=== PATIENT | female | born 1960 | race Caucasian/White ===

== ENCOUNTER → 2024-03-18 05:11 | Outpatient (CLI) | payer MEDICARE, SELFPAY ==
--- NOTE | 2024-03-18 | DI.MAMMO_ITS ---
Exam(s) MAMMO SCREENING EXAM: MAMMO SCREENING CLINICAL HISTORY: Z12.31 Screening TECHNIQUE: Bilateral full field digital CC and MLO mammographic images were obtained with 3D tomosyn thesis and utilizing computer aided detection (CAD). COMPARISON: There are no priors for comparison. When priors become available, an addendum will be i ssued at that time. FINDINGS: Masses/Architectural Distortion: None seen. Microcalcifications: No suspicious pleomorphic-type are seen. Skin Thickening/Nipple Retraction: None. IMPRESSION: 1. No evidence for malignancy is seen at this time. 2. Unless there is more urgent need, screening mammography is recommended, as per [employer] guidelines. BI-RADS Category 1 - Negative Breast Density - Category B - Scattered areas of fibroglandular density Breast density category C or D implies that the patient has dense breast tissue. Dense breast tissue is very common and is not abnormal but dense breast tissue can make it harder to find cancer on a ma mmogram. Also, dense breast tissue may increase their breast cancer risk. This information about the result of the mammogram report was provided to the patient to raise their awareness. Use this report when you speak with the patient about their risks for breast cancer, which includes their family hist ory. At that time, you may recommend for more screening tests (Ultrasound or MRI) as they might be us eful based on their risk. A negative radiographic report should not delay biopsy if a dominant or clinically suspicious mass is present. Up to ten percent of cancers are not identified on mammography. A negative report may reinforce clinical impression. Adenosis and dense breasts may obscure an underlying neoplasm. False positive reports average 6 to 10%. Patient will receive a letter notifying them of these results.
== END ==
PROVIDERS: Visit Provider Student in an Organized Health Care Education/Training Program
DX: Z12.31 Encounter for screening mammogram for malignant neoplasm of breast (principal)
CPT/HCPCS: 77063; 77067

== ENCOUNTER 2024-03-18 10:03 | Outpatient (REF) | payer MEDICARE, SELFPAY ==
[2024-03-18 16:17] LABS: Abs Immature Grans 0.02 10^3/uL (0.0-0.06); Absolute Basophil Count 0.04 10^3/uL (0.0-0.2); Absolute Lymphocyte Count 2.22 10^3/uL (1.2-3.4); Absolute Monocyte Count 0.35 10^3/uL (0.1-0.8); Absolute Neutrophil Count 5.42 10^3/uL (1.2-6.7); Basophils % 0.5 %; Eosinophils % 1.2 %; HCT 41.9 % (36.0-46.0); HGB 13.7 g/dL (11.2-15.7); Immature Grans % 0.2 %; Lymphocytes % 27.2 %; MCHC 32.7 % (32.0-36.0); MCV 89 fL (80-95); MPV 10.7 fL (8.0-11.0); Monocytes % 4.3 %; Neutrophils % 66.6 %; Platelet Count 376 10^3/uL (130-400); RBC 4.72 10^6/uL (3.93-5.22); RDW 13.9 % (11.7-14.6); RDW-SD 45.1 fL; WBC 8.15 10^3/uL (4.4-10.8)
[2024-03-18 16:58] LABS: Calculated LDL 195 mg/dL (<100); Cholesterol 281 mg/dL (<200); HDL Cholesterol 50 mg/dL (40-60); Hemoglobin A1C 5.9 % (<5.7); Triglyceride 181 mg/dL (<150)
== END 2024-03-18 10:04 | disposition home or self-care (01) ==
LOC: NCHCN 10:03
PROVIDERS: PCP Student in an Organized Health Care Education/Training Program; Visit Provider Student in an Organized Health Care Education/Training Program
DX: E78.5 Hyperlipidemia, unspecified (principal); J45.20 Mild intermittent asthma, uncomplicated; R73.09 Other abnormal glucose
CPT/HCPCS: 80061; 83036; 85025

== ENCOUNTER 2024-06-19 16:18 | Emergency (ER) | payer MEDICARE, SELFPAY ==
[2024-06-19 16:23] VITALS: BP 150/81; PULSE 84; RESP 96; TEMP 36.9; O2SAT 96
--- NOTE | 2024-06-19 16:23 | ED.GENADUL_ITS ---
Discharge Plan Disposition Patient Disposition: Home Condition: Good Discharge Details Clinical Impression: Lower abdominal pain, Abnormal finding on CT scan Primary Care Provider: Xavier Viveros ED Provider: Adryan Veloz [place] Meds and New Rx's Prescriptions: Continued albuterol sulfate 90 mcg/actuation HFA aerosol inhaler 2 puff inhalation Q6H PRN buspirone 10 mg tablet 10 mg PO BID duloxetine 60 mg capsule,delayed release(DR/EC) 60 mg PO DAILY epinephrine 0.3 mg/0.3 mL auto-injector 0.3 mg IM ONCE Rx Instructions: as a single dose; may repeat once gabapentin 800 mg tablet 800 mg PO TID levothyroxine 100 mcg capsule 100 mcg PO DAILY tizanidine 4 mg tablet 4 mg PO QHS PRN fluticasone propionate 44 mcg/actuation HFA aerosol inhaler 2 inh inhalation ONCE Rx Instructions: administer with spacer Discharge Instructions Additional Instructions: You were seen in the ED for lower abdominal pain and redness with concern for possible abscess. Your laboratory studies and CT scan were completely unremarkable other than possible finding of tiny dots of free air along the liver dome. Given that your exam and labs are unremarkable and the rest of your CT scan was completely normal we have no real explanation for this finding. Recommend follow-up with primary care with repeat CT scan in 1 to 2 weeks. You should return to the ED at once for any new or worsening pain, fever, vomiting, shortness of breath, other concerns. Referrals: Xavier Viveros [Primary Care Provider] - Discharge Data Discharge Date/Time-TO BE ENTERED AT DEPARTURE: 06/19/24 18:51 HPI General Mode of arrival: ambulatory . Date/Time Provider Initiated Documentation: 06/19/24 16:23 . Limitations to Documentation: no limitations . Information obtained by: patient . HPI Narrative: Patient presents to ED for evaluation of left lower quadrant abdominal pain and redness. Patient reports history of what possibly are cutaneous abscesses that spontaneously have drained in the past. Patient reports a large amount of drainage of fluid from the low abdomen Antonio night. Subsequently began taking cephalexin and applied antibacterial ointment cream to the lower abdomen. Reports that after speaking to primary care was told to come to ED to be sure no residual abscess that she continues to have some pain and redness on the left lower abdomen. She denies any fever or chills. She denies any nausea vomiting, diarrhea. She has had chronic intermittent problems in this area status post C- section years ago. Related Data Home Medications ?Medication ?Instructions ?Recorded ?Confirmed albuterol sulfate 90 mcg/actuation 2 puff inhalation Q6H PRN 05/21/24 06/19/24 aerosol inhaler buspirone 10 mg tablet 10 mg PO BID 05/21/24 06/19/24 duloxetine 60 mg capsule,delayed 60 mg PO DAILY 05/21/24 06/19/24 release epinephrine 0.3 mg/0.3 mL 0.3 mg IM ONCE 05/21/24 06/19/24 injection, auto-injector gabapentin 800 mg tablet 800 mg PO TID 05/21/24 06/19/24 levothyroxine 100 mcg capsule 100 mcg PO DAILY 05/21/24 06/19/24 tizanidine 4 mg tablet 4 mg PO QHS PRN 05/21/24 06/19/24 fluticasone propionate 44 2 inh inhalation ONCE 06/19/24 06/19/24 mcg/actuation HFA aerosol inhaler Allergies Allergy/AdvReac Type Severity Reaction Status Date / Time venom-wasp Allergy Severe Anaphylaxis Verified 06/19/24 16:29 acetaminophen (From Percocet) Allergy Unknown Unknown Verified 06/19/24 16:29 atorvastatin Allergy Unknown Other (See Verified 06/19/24 16:29 Comment) coconut Allergy Unknown Unknown Verified 06/19/24 16:29 fish derived Allergy Unknown Unknown Verified 06/19/24 16:29 guaifenesin Allergy Unknown Unknown Verified 06/19/24 16:29 hydromorphone (From Dilaudid) Allergy Unknown Other (See Verified 06/19/24 16:29 Comment) kiwi Allergy Unknown Unknown Verified 06/19/24 16:29 annalisa Allergy Unknown Unknown Verified 06/19/24 16:29 morphine Allergy Unknown Unknown Verified 06/19/24 16:29 mushroom Allergy Unknown Unknown Verified 06/19/24 16:29 nut - unspecified Allergy Unknown Unknown Verified 06/19/24 16:29 oxycodone Allergy Unknown Unknown Verified 06/19/24 16:29 peach Allergy Unknown Unknown Verified 06/19/24 16:29 pear Allergy Unknown Unknown Verified 06/19/24 16:29 shellfish derived Allergy Unknown Unknown Verified 06/19/24 16:29 Sulfa (Sulfonamide Allergy Unknown Unknown Verified 06/19/24 16:29 Antibiotics) Review of Systems Narrative: Per HPI Exam Narrative Exam Narrative: Const: WDWN female in NAD. VS per triage. HEENT: NC/AT. Normal facial exam. Neck: Supple. Trachea midline. Lungs: Normal respiratory effort. GI: Soft/ND. Mild tenderness with firmness in the LLQ with mild overlying erythema. Neuro: A+O x 3. Normal speech, mentation, gait. Cranial nerves II - XII grossly intact. No gross motor or sensory deficit. Ext: No C/C/E. Medical Decision Making Patient presenting to ED with possible abdominal wall abscess which may have self drained last week. Has mild tenderness and erythema overlying a firm area in the left lower quadrant which feels more like scar tissue than abscess. There is no significant drainage and there is no opening in the skin that I can appreciate at this time. Will place IV and get CBC, BMP as well as abdominal pelvic CT with contrast. Patient's laboratory studies are normal. CT scan discussed directly with Dr. Soriano from radiology. There is no evidence of abdominal wall abscess, fistula, bowel abnormalities. Noted tiny dots of what appeared to be free air at the dome of the liver. Patient has no diffuse abdominal pain, no fever, no white count. She otherwise has a completely normal CT scan. Given that there is no explanation for the finding and the patient is clinically stable we will plan discharge home to follow-up with primary care. Radiology recommending repeat CT in 1 to 2 weeks for recheck. Discussed with patient and at length reasons to return including any type of new or worsening abdominal pain, fever, vomiting, shortness of breath, other concerns. Lab Data Lab results reviewed: Yes I reviewed the patient's lab results. Lab results narrative: see [facility] Quality:SDOH Health Related Social Needs: No Data to Display PFSH All Active Problems (Updated 06/19/24 @ 18:49 by Adryan Veloz MD) Abnormal finding on CT scan (Acute) Lower abdominal pain (Acute) Herpes labialis (Acute) Herpes simplex (Acute) Spinal stenosis of lumbar region (Acute) Medical History (Updated 06/19/24 @ 18:49 by Adryan Veloz MD) Fibromyalgia Asthma Peripheral nerve disease EVA (generalized anxiety disorder) Hypercholesterolemia Hypothyroidism Surgical History History of section Social History Smoking/Tobacco Use Status: Never Smoking risk assessment performed?: Yes Alcohol Intake: never Drug use: Never Housing: house Do you feel safe at home: Yes Do you feel safe in your relationship?: Yes
--- NOTE | 2024-06-19 16:45 | DI.CT_ITS ---
Exam(s) CT ABDOMEN PELVIS W EXAM: CT ABDOMEN PELVIS W CLINICAL HISTORY: LLQ redness/tenderness TECHNIQUE: Imaging Protocol: Axial computed tomography images with coronal and sagittal reformatted images were created and reviewed. CONTRAST MATERIAL: Intravenous: Omnipaque 350 Contrast volume:100 mL Oral: No COMPARISON: No exams were available for comparison FINDINGS: ABDOMEN: Lung Bases: There is a small hiatal hernia. Liver: Normal density. There are few tiny hypodensities in the liver. They are too small for further characterization but likely reflect small cysts. Portal, Superior Mesenteric, and Splenic Veins: Unremarkable. Gallbladder and Biliary Tract: No radiodense calculus or dilation. Pancreas: Normal density, no abnormal calcifications or inflammatory process. Spleen: Normal. Adrenals: No masses seen. Kidneys: Normal size, contour and axis. No radiodense stones or obstructive uropathy. No masses seen. Abdominal Aorta: Abdominal portion non-dilated. Atherosclerotic calcification is present. Bowel: No obstruction or bowel wall thickening. There is a moderate amount of stool in the colon sugg esting constipation. No evidence of appendicitis. Peritoneal Cavity: No ascites, collection or mesenteric inflammatory response. There are few tiny fo ci of air seen in the peritoneum adjacent to the into superior liver (series 9 images 4 through 10.) (sagittal image 37 series 7). Lymph Nodes: Within normal limits. Bones: Within normal limits for the patient's age. Soft Tissues: Unremarkable. PELVIS: Bladder: Symmetric distention, no gross wall thickening. Reproductive Organs: Unremarkable as visualized. Lymph Nodes: Within normal limits. Bones: Within normal limits for the patient's age. IMPRESSION: 1. No evidence of a subcutaneous fluid collection or mass. No subcutaneous air is seen. The abdomin al wall appears intact. 2. There is no evidence of bowel wall thickening or obstruction. 3. Moderate amount of stool in the colon. This may represent constipation. 4. A few tiny foci of what appear to be pneumoperitoneum around the liver. A follow-up CT scan of th e abdomen and pelvis is recommended to reassess the pneumoperitoneum. 5. Findings were discussed with Dr. Veloz at 6:30 p.m. on 06/19/2024. RADIATION DOSE DELIVERED: 494.59mGy.cm Total DLP DATA REPOSITORY: All CT scans at this facility are submitted to the National Radiology Data Registry (NRDR) Dose Index Registry (DIR) with the [employer] (ACR). RADIATION OPTIMIZATION: All CT scans at this facility use at least one of these dose optimization te chniques: automated exposure control; mA and/or kV adjustment per patient size (includes targeted exa ms where dose is matched to clinical indication); or iterative reconstruction.
--- OUTSIDE RECORDS SUMMARY | 2024-06-19 16:46 | XMS_ITS | Data Portability ---
Author Organization [place] - [facility] Address [address] [place] [address] Assessment Encounter Date Assessment Date Assessment LastModified by Organization Details LastModified Time 03/18/2024 03/18/2024 New meds sent to Pharmacy. Referral to Dermatology and Endocrinology, and podiatry. We will do pap at October Appt. which should be her last one if negative. Not available 03/18/2024 09:05:11 Plan of Treatment Reminders Order Date Submit Date Provider Last Modified By Organization Details Last Modified Time Details Appointments Acute 2023 01:33P M Not available Not available Not available Acute 2023 01:00P M Not available Not available Not available Follow Up 2024 10:10A M Not available Not available Not available Lab HbA1c (hemoglob in A1c), blood - 1 SST, 1 Lav [address] [facility] (Registration ), [address] [place] [address] [place], [address], 03/26/2024 14:09:14 lipid panel, serum 2023 024 [facility] (Registration ), [address] [place] [address] [place], [address], 03/26/2024 14:09:14 CBC w/ auto diff 2023 024 JUNIOR [facility] (Registration ), [address] [place] [address] [place], [address], 03/18/2024 16:28:57 Referral dermatolo gist referral - Pt, 63-F, being referred for likely Hidradeni tis Supparati va, and also evaluatio n of a likely sebaceous cyst on her low back that she would like to have removed if possible. SHe has responded to Cephalexi n for the CELESTE symptoms, and she has had these cysts in bilateral lesions. 2023 JUNIOR [facility] ([facility]), [address] [place], [address], 06/04/2024 11:27:28 podiatris t referral - Pt, 63-F, w/refract ory plantar's wart on the plantar aspect of her great toe. She is hoping for definitiv e excisino of this PW. 2023 JUNIOR Not available 05/13/2024 04:18:49 orthopedi c surgeon referral - Pt, 63-F, gives hx. of TKR of left side in year 2013. Pt. states she has had increased pain over recent months to years and states she was informed that she required liner replaceme nt for left knee. Pt. patricia Sibley. 2023 [email or web address] Jose Elias Sibley MD, [address], [address], [place], [address], 06/04/2024 16:15:32 Procedures None recorded. Surgeries None recorded. Imaging MAMMO, screening , bilateral - Pt last mammogram 2021 and due for f/u. No signs/Sx of breast cancer including pain, bumps, lumps, skin changes, dimples, change in nipple orientati on, armpit pain. 2023 [email or web address] [facility], [address], [place], [address], 04/09/2024 12:57:24 Medication Orders EpiPen 2-Leo 0.3 mg/0.3 mL injection , auto-inje ctor 2023 024 [facility], [address] [place] [address], [address], 12/11/2023 13:43:15 cephalexi n 500 mg capsule 2023 [facility], [address] [place] [address], [address], 03/18/2024 12:11:16 mupirocin 2 % topical ointment 2023 [facility], [address] [place] [address], [address], 03/18/2024 12:11:12 gabapenti n 800 mg tablet [address], [address] [place] [address], [address], 03/18/2024 11:42:31 duloxetin e 60 mg capsule,d elayed release [address], [address] [place] [address], [address], 03/18/2024 11:42:31 tizanidin e 4 mg tablet [address] [facility], [address] [place], [address], 03/18/2024 11:42:31 EpiPen 2-Leo 0.3 mg/0.3 mL injection , auto-inje ctor [address], [address] [place] [address], [address], 03/18/2024 11:42:31 famciclov ir 500 mg tablet 2023 024 [facility], [address] [facility], [address], [place], [address], 03/18/2024 12:11:15 levothyro xine 100 mcg tablet 2023 024 [email or web address] [facility], [address], [address], [place], [address], 03/18/2024 11:42:31 Patient TargetsNo targets recorded. Patient InstructionsNo instructions recorded. 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 SHe has responded to Cephalexin for the CELESTE symptoms, and she has had these cysts in bilateral lesions. Referring Physician: Xavier Viveros [facility] Medicine, Encounter Date: 03/18/2024 Orthopedic Surgeon Referral for Pain of left knee joint Pt, 63-F, gives hx. of TKR of left side in year 2013. Pt. states she has had increased pain over recent months to years and states she was informed that she required liner replacement for left knee. Pt. requesting Dr. Sibley. Referring Physician: Xavier Viveros [facility] Medicine, Encounter Date: 03/18/2024 Vocational Rehabilitation Consultant Referral for Pain of toe of left foot Pt, 63-F, w/refractory plantar's wart on the plantar aspect of her great toe. She is hoping for definitive excisino of this PW. Referring Physician: Xavier Viveros [facility] Medicine, Encounter Date: 03/18/2024 Vocational Rehabilitation Consultant Referral for Pain of toe of left foot Referring Physician: Xavier Viveros [facility] Medicine, Encounter Date: 05/15/2024 Endocrinology Referral for H istory of malignant neoplasm of thyroid Pt. 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 She then had recurrence of growth and then went to [facility] [place] they then did radiation ablation. Pt. reports she had recurrence she thinks 2000 and then had another round of iodine ablation which was not effective, then she was referred to another specialist. She has [address] that were were slightly irregular, but they are stable. She is having US surveillance every 3 years. She believes she is due again in 2024. She reports her thyroid has been checked about every 12 months. Pt. requesting surveillance by endocrine specialists for mgmt of thyroid care. Referring Physician: Xavier Viveros, Family Medicine, Encounter Date: 05/23/2024 Results Created Date Observation Date Name Description Value Unit Range Abnormal Flag Note LastModifiedBy Organization Detail LastModifiedTime 03/18/2003/18/2024 COMPL ETE BLOOD COUNT W/DIF F WBC 8.15 10_3/ uL 4.4-10 .8 normal Not Available [address] [place], [address] 03/18/2024 16:28:57 03/18/2003/18/2024 COMPL ETE BLOOD COUNT W/DIF F RBC 4.72 10_6/ uL 3.93-5 .22 normal Not Available [address] [place], [address] 03/18/2024 16:28:57 03/18/20 24 03/18/2024 COMPL ETE BLOOD COUNT W/DIF F HGB 13.7 g/dL 11.2-1 5.7 normal Not Available [address] [place], [address] 03/18/2024 16:28:57 03/18/20 24 03/18/2024 COMPL ETE BLOOD COUNT W/DIF F HCT 41.9 % 36.0-4 6.0 normal Not Available [address] [place], [address] 03/18/2024 16:28:57 03/18/20 24 03/18/2024 COMPL ETE BLOOD COUNT W/DIF F MCV 89 fL 80-95 normal Not Available Sadie wynne [address] [place], [address] 03/18/2024 16:28:57 03/18/20 24 03/18/2024 COMPL ETE BLOOD COUNT W/DIF F MCH 29.0 pg 27.0-3 3.0 normal Not Available [address] [place], [address] 03/18/2024 16:28:57 03/18/20 24 03/18/2024 COMPL ETE BLOOD COUNT W/DIF F MCHC 32.7 % 32.0-3 6.0 normal Not Available [address] [place], [address] 03/18/2024 16:28:57 03/18/20 24 03/18/2024 COMPL ETE BLOOD COUNT W/DIF F RDW 13.9 % 11.7-1 4.6 normal Not Available [address] [place], [address] 03/18/2024 16:28:57 03/18/20 24 03/18/2024 COMPL ETE BLOOD COUNT W/DIF F platelet count 376 10_3/ uL 130-40 0 normal Not Available [address] [place], [address] 03/18/2024 16:28:57 03/18/20 24 03/18/2024 COMPL ETE BLOOD COUNT W/DIF F MPV 10.7 fL 8.0-11 .0 normal Not Available [address] [place], [address] 03/18/2024 16:28:57 03/18/20 24 03/18/2024 COMPL ETE BLOOD COUNT W/DIF F neutrophils % 66.6 % Not Available [address] [place], [address] 03/18/2024 16:28:57 03/18/20 24 03/18/2024 COMPL ETE BLOOD COUNT W/DIF F lymphocytes % 27.2 % Not Available [address] [place], [address] 03/18/2024 16:28:57 03/18/20 24 03/18/2024 COMPL ETE BLOOD COUNT W/DIF F monocytes % 4.3 % Not Available [address] [place], [address] 03/18/2024 16:28:57 03/18/20 24 03/18/2024 COMPL ETE BLOOD COUNT W/DIF F eosinophils % 1.2 % Not Available [address] [place], [address] 03/18/2024 16:28:57 03/18/20 24 03/18/2024 COMPL ETE BLOOD COUNT W/DIF F basophils % 0.5 % Not Available [address] [place], [address] 03/18/2024 16:28:57 03/18/20 24 03/18/2024 COMPL ETE BLOOD COUNT W/DIF F immature grans % 0.2 % Not Available [address] [place], [address] 03/18/2024 16:28:57 03/18/20 24 03/18/2024 COMPL ETE BLOOD COUNT W/DIF F nucleated RBC 0.0 % 0.0-0. 3 normal Not Available [address] [place], [address] 03/18/2024 16:28:57 03/18/20 24 03/18/2024 COMPL ETE BLOOD COUNT W/DIF F absolute neutrophil count 5.42 10_3/ uL 1.2-6. 7 normal Not Available [address] [place], [address] 03/18/2024 16:28:57 03/18/20 24 03/18/2024 COMPL ETE BLOOD COUNT W/DIF F absolute lymphocyte count 2.22 10_3/ uL 1.2-3. 4 normal Not Available [address] [place], [address] 03/18/2024 16:28:57 03/18/20 24 03/18/2024 COMPL ETE BLOOD COUNT W/DIF F absolute monocyte count 0.35 10_3/ uL 0.1-0. 8 normal Not Available [address] [place], [address] 03/18/2024 16:28:57 03/18/20 24 03/18/2024 COMPL ETE BLOOD COUNT W/DIF F absolute eosinophil count 0.10 10_3/ uL 0.0-0. 7 normal Not Available [address] [place], [address] 03/18/2024 16:28:57 03/18/20 24 03/18/2024 COMPL ETE BLOOD COUNT W/DIF F absolute basophil count 0.04 10_3/ uL 0.0-0. 2 normal Not Available [address] [place], [address] 03/18/2024 16:28:57 03/18/20 24 03/18/2024 HEMOG LOBIN A1C hemoglobin A1C 5.9 % <5.7 high Refer ence Range s <5.7 Katie l 5.7-6 .4% Predi abete s 6.5% or great er Diagn ostic for diabe caty (if confi rmed) Refer ences : 1. Ameri can Diabe caty Assoc iatio n. Clas sific ation and Diagn osis of Diabe caty. Diabe caty Care 2019 Oct; 2(Sup pleme nt 1):S1 3-s28 . Not Available [address] [place], [address] 03/18/2024 17:04:13 03/18/20 24 03/18/2024 LIPID 2 cholesterol 281 mg/dL <200 high Not Available [address] [place], [address] 03/18/2024 17:04:14 03/18/20 24 03/18/2024 LIPID 2 triglyceride 181 mg/dL <150 high Not Available [address] [place], [address] 03/18/2024 17:04:14 03/18/20 24 03/18/2024 LIPID 2 HDL cholesterol 50 mg/dL 40-60 Not Available Emmanuel [address] [place], [address] 03/18/2024 17:04:14 03/18/20 24 03/18/2024 LIPID 2 calculated LDL 195 mg/dL <100 high Natio nal Yuliet stero l Educa tion Progr am (NCEP -ATPI II) class ifica tions : Yuliet stero l <200 mg/dL Yenifer able Yuliet stero l 200-2 39 mg/dL Borde rline High Yuliet stero l >or=2 40 mg/dL High HDL <40 mg/dL Low HDL >or=6 0 mg/dL High LDL <100 mg/dL Optim al LDL 100-1 29 mg/dL Near Optim al/Ab ove Optim al LDL 130-1 59 mg/dL Borde rline High LDL 160-1 89 mg/dL High LDL >or=1 90 mg/dL Very High *The above refer ence range is for adult s 18 years or older . Not Available [facility] [address], [place], [address] 03/18/2024 17:04:14 04/01/20 24 04/01/2024 mammo graph y imagi ng repor t Patien t Name: Miller Castrejon Unit #: [id number] Loc: DI Orderi ng Provid er: Sha Viveros Accoun t #: [id number] Status : REG CLI Primar y Care Provid er: Unknow n,Unkn own Date of Exam: 08/01 Sex: F Admiss ion Date: : 1959 Age: 63 Exam(s ) MG MAMMO SCREEN ING EXAM: MG MAMMO SCREEN ING CLINIC AL HISTOR Y: Z12.31 Screen ing TECHNI QUE: Bilate ral full field digita l CC and MLO mammog raphic images were obtain ed with 3D tomosy nthesi s and utiliz ing comput er aided detect ion (CAD). COMPAR TEAGAN: There are no priors for compar teagan. When priors become availa ble, an addend um will be issued at that time. FINDIN GS: Masses /Archi tectur al Distor tion: None seen. Microc alcifi cation s: No suspic ious pleomo rphic- type are seen. Skin Thicke ana cristina/N ipple Retrac tion: None. IMPRES STEFF: 1. No eviden ce for malign geneva is seen at this time. 2. Unless there is more urgent need, screen ing mammog danilo is recomm ended, as per [facility] y guidel deborah. BI-RAD S Catego ry 1 - Negati ve Breast Densit y - Catego ry B - Scatte red areas of fibrog landul ar densit y Breast densit y catego ry C or D implie s that the patien t has dense breast tissue . Dense breast tissue is very common and is not abnorm al but dense breast tissue can make it harder to find cancer on a mammog yana. Also, dense breast tissue may increa se their breast cancer risk. This inform ation about the result of the mammog yana report was provid ed to the patien t to raise their awaren ess. Use this report when you speak with the patien t about their risks for breast cancer , which includ es their family histor y. At that time, you may recomm end for more screen ing tests (Ultra sound or MRI) as they might be useful based on their risk. A negati ve radiog raphic report should not delay biopsy if a domina nt or clinic ally suspic ious mass is presen t. Up to ten percen t of cancer s are not identi fied on mammog danilo. A negati ve report may reinfo rce clinic al impres steff. Adenos is and dense breast s may obscur e an underl cirilo neopla sm. False positi ve report s averag e 6 to 10%. Patien t will receiv e a letter notify ing them of these result s. Ordere d By: Sha Viveros CC: ------ ------ ------ ------ ------ ------ ------ ------ ------ ------ ------ ------ - Dictat ed By: Adryan Soriano M.D. 1155 1155 Transc ribed By: Adryan Soriano 1155 This is privil eged, confid ential inform ation intend ed only for the provid er named. Any use or distri bution by any person other than this provid er is strict ly prohib ited. If you receiv e this report in error, please notify us immedi ately at [phone] and return the origin al report to us at the addres s above. Thank- you. [email or web address] [facility] [address] [place], [address] 05/18/2024 14:34:54 Result Notes None recorded. Problems Name Problem SNOMED Code Status Onset Date Resolution Date Notes Provider Name and Address Organization Details Recorded Time Generalized anxiety disorder 00038913 Active 2023 JEREMIE GOMEZ, [facility] 4 11:51:57 Mild intermitten t asthma 475149708 Active 2023 JEREMIE GOMEZ, [facility] 4 11:52:11 Abscess 866762311 Active 2023 JEREMIE GOMEZ, [facility] 4 11:52:28 Fibromyalgi a 338935239 Active 2023 JEREMIE GOMEZ, [facility] 4 07:42:16 Herpes simplex 26174763 Active 2023 JEREMIE GOMEZ, [facility] 4 07:43:21 Hypercholes terolemia 07748979 Active 2023 JEREMIE GOMEZ, [facility] 4 07:43:42 Spinal stenosis of lumbar region 02644531 Active 2023 JEREMIE GOMEZ, [facility] 4 07:44:07 Peripheral nerve disease 474904432 Active 2023 JEREMIE GOMEZ, [facility] 4 07:44:41 Postoperati ve hypothyroid ism 73758913 Active 2023 JEREMIE GOMEZ, [facility] 4 07:45:39 History of malignant neoplasm of thyroid 551309470 Active 2023 JEREMIE GOMEZ, [facility] 4 07:45:56 Hypothyroid ism 32901896 Active [address], [place], [address], [facility] 4 10:36:40 Wasp sting-induc ed anaphylaxis 826902904 Active [address], [place], [address], [facility] 4 11:08:53 Hidradeniti s suppurativa 69705320 Active [address], [place], [address], [facility] 4 12:44:40 Allergic rhinitis 86657224 Active [address], [place], [address], [facility] 4 08:01:36 Hyperlipide amisha 51801466 Active [address], [place], [address], [facility] 4 08:33:34 Herpes labialis 5293983 Active [address], [place], [address], [facility] 4 08:38:12 Pain of left knee joint 6126142556637 07 Active [address], [place], [address], [facility] 4 11:59:00 Pain of toe of left foot 6629832359415 08 Active [address], [place], [address], [facility] 12:02:26 wound disruption 606856205 Active [address], [place], [address], [facility] 16:04:50 Problem Notes None recorded. Procedures Surgical History Date Name Laterality Status Provider Name and Address Organization Details Recorded Time 06/13/20 24 Suture/Staple removal active [address], [place], [address], [facility] 06/13/2024 14:11:35 04/08/20 19 colonoscopy completed JEREMIE GOMEZ, [facility] 12/05/2023 07:47:38 10/09/19 18 extraction of cataract completed JEREMIE GOMEZ, [facility] 12/05/2023 07:46:37 10/09/19 17 [facility]2023 07:46:22 10/09/19 17 anterior transposition of ulnar nerve completed JEREMIE GOMEZ, [facility] 12/05/2023 07:48:48 10/09/19 13 Total knee arthroplasty completed JEREMIE GOMEZ, [facility] 12/05/2023 07:48:18 10/09/19 10 colonoscopy completed JEREMIE GOMEZ, [facility] 12/05/2023 07:47:28 10/09/19 06 Thyroid Surgery completed JEREMIE GOMEZ, [facility] 12/05/2023 07:48:02 10/09/19 04 Thyroid Surgery completed JEREMIE GOMEZ, [facility] 12/05/2023 07:47:57 10/09/18 90 [facility]2023 07:47:52 10/09/18 88 section [facility] 12/05/2023 07:47:05 10/09/18 85 section [facility] 12/05/2023 07:47:00 Imaging Results Imaging Date Name Status LastModified by Organiz ation Details LastModified Time 04/01/2024 mammography imaging report completed [email or web address] [facility] [address] [place], [address] 05/18/2024 14:34:54 Procedure Notes None recorded. Medical Equipment None Reported. Allergies Allergen ID Allergen Name Allergen Category Reaction Reaction Severity Criticality Documentation Date Start Date Code Code System Note Provider Name and Address Organization Details Recorded Time 69079 Substance with sulfonami de structure and antibacte rial mechanism of action (substanc e) medicatio n Not available Not available Not available 12/08/2023 97782 8003 [facility]ED [facility] 4 09:44:14 07993 Dilaudid medicatio n Not available Not available Not available 12/08/2023 74212 3 RxNorm [facility] 4 09:44:20 91383 morphine medicatio n Not available Not available Not available 12/08/2023 7052 RxNorm JEREMIE GOMEZ, [facility] 4 09:44:33 58831 acetamino phen / oxycodone medicatio n Not available Not available Not available 12/08/2023 17058 3 RxNorm [facility] 4 09:44:41 94173 oxycodone medicatio n Not available Not available Not available 12/08/2023 7804 RxNorm [facility] 4 09:44:49 42907 atorvasta tin medicatio n Not available Not available Not available 12/08/2023 27253 RxPatlillian MIN GARCIAJEREMIE, [facility] 4 09:44:56 57926 guaifenes in medicatio n Not available Not available Not available 12/08/2023 5032 RxPatlillian MIN GARCIAJEREMIE, [facility] 4 09:45:07 93134 shellfish derived food,medi cation Not available Not available Not available 12/08/2023 MIN GARCIAJEREMIE, [facility] 4 09:45:21 02259 fish derived food,medi cation Not available Not available Not available 12/08/2023 MINREUBEN GARCIAJEREMIE, [facility] 4 09:45:29 36319 banana extract food,medi cation Not available Not available Not available 12/08/2023 84586 9 Kofilillian MIN GARCIAJEREMIE, [facility] 4 09:45:36 44957 nut - unspecifi ed food Not available Not available Not available 12/08/2023 MIN GARCIA JEREMIE nicole, [facility] 4 09:45:48 62209 coconut extract food,medi cation Not available Not available Not available 12/08/2023 61941 48 Blanka GARCIA JEREMIE nicole, [facility] 4 09:45:57 85067 annalisa extract food Not available Not available Not available 12/08/2023 63994 32 Blanka GARCIAJEREMIE, [facility] 4 09:46:04 99600 kiwi fruit extract food Not available Not available Not available 12/08/2023 94307 01 Blanka GARCIA JEREMIE nicole, [facility] 4 09:46:12 76987 pear preparati on food Not available Not available Not available 12/08/2023 58917 25 RxNoJEREMIE Jaramillo, [facility] 4 09:46:19 64110 peach food Not available Not available Not available 12/08/2023 JEREMIE GOMEZ, [facility] 4 09:46:27 55013 cultivate d mushroom extract food Not available Not available Not available 12/08/2023 05377 17 RxNorm JEREMIE GOMEZ, [facility] 4 09:46:34 Medications Name Sig Start Date Stop Date Status Note LastModified by Organization Details LastModified Time tizanidine 4 mg tablet Take 1 tablet every day by oral route at bedtime. 2023 active Not Available Not Available Not Avai lable cephalexin 250 mg tablet Take 1 tablet every 6 hours by oral route. 2023 active Not Available Not Available Not Avai lable levothyroxi ne 100 mcg tablet Take 1 tablet every day by oral route. 2023 active Not Available Not Available Not Avai lable famciclovir 500 mg tablet Take 3 tablets at the same time at onset of cold sore 2023 active Not Available Not Available Not Avai lable gabapentin 800 mg tablet Take 1 tablet 3 times a day by oral route. 2023 active Not Available Not Available Not Avai lable cephalexin 500 mg capsule Take 1 capsule every 6 hours by oral route. 2023 active Not Available Not Available Not Avai lable buspirone 10 mg tablet Take 1 tablet twice a day by oral route. active Not Available Not Available No t Available fluticasone propionate 220 mcg/actuati on HFA aerosol inhaler Inhale 1 puff twice a day by inhalatio n route. active Not Available Not Available No t Available pravastatin 20 mg tablet 1 tab by mouth each night before bed 2023 active Not Available Not Available Not Avai lable mupirocin 2 % topical ointment APPLY A SMALL AMOUNT TO THE AFFECTED AREA BY TOPICAL ROUTE 3 TIMES PER DAY 2023 active Not Available Not Available Not Avai lable albuterol 90 mcg/actuati on aerosol inhaler Inhale by inhalatio n route. active Not Available Not Available No t Available fluticasone propionate 50 mcg/actuati on nasal spray,suspe nsion [place] 1 spray every day by intranasa l route. 12/07 completed Not Available Not Available Not Available duloxetine 60 mg capsule,del ayed release Take 1 capsule every day by oral route. 2023 active Not Available Not Available Not Avai lable EpiPen 2-Leo 0.3 mg/0.3 mL injection, auto-inject or Administe r 1 epi-pen injection with onset of anaphylax is reaction. If no improveme nt in symptoms at 5-minute addison, administe r second epipen injection . Go to ER for any anaphylax is episode. 2023 active Not Available Not Available Not Avai lable ascorbic acid (vitamin C) 500 mg capsule Take 1 capsule every day by oral route. active Not Available Not Available No t Available Vitals Date Recorded Body height Body mass index (BMI) Body weight Body temperature Oxygen saturation Oxygen saturation in Arterial blood by Pulse oximetry Heart rate Respiratory rate Systolic blood pressure Diastolic blood pressure Provider Name and Address Organization Details Last Updated DateTime 4 154.94 cm 30.8 kg/m2 48507.2 7 g 98.1 [degF] 99 % 99 % 78 /min 20 /min 122 mm[Hg] 82 mm[Hg] MIN GARCIA MA [facility] 4 09:42:25 Date Recorded Body height Body mass index (BMI) Body weight Body temperature Oxygen saturation Oxygen saturation in Arterial blood by Pulse oximetry Heart rate Systolic blood pressure Diastolic blood pressure Provider Name and Address Organization Details Last Updated DateTime 4 154.94 cm 30.6 kg/m2 92404.6 8 g 97.7 [degF] 100 % 100 % 82 /min 122 mm[Hg] 78 mm[Hg] MIN GARCIA MA [facility] 4 08:02:26 Date Recorded Body height Body mass index (BMI) Body weight Body temperature Oxygen saturation Oxygen saturation in Arterial blood by Pulse oximetry Heart rate Respiratory rate Systolic blood pressure Diastolic blood pressure Provider Name and Address Organization Details Last Updated DateTime 4 154.94 cm 31 kg/m2 71824.1 5 g 98.4 [degF] 97 % 97 % 74 /min 18 /min 144 mm[Hg] 78 mm[Hg] Daisy Becker MA [facility] 15:00:19 Social History Question Answer Notes LastModified by Organizat ion Details LastModified Time Tobacco Smoking Status Never Smoker MIN GARCIA MA null, [facility] 12/05/2023 10:56:38 Would You Say That, In General, Your Health Is Very Good Information not available 12/05/2023 How Often Does Anyone, Including Family, Physically Hurt You? Never Information not available 12/05/2023 How Often Does Anyone, Including Family, Insult Or Talk Down To You? Never Information no t available 12/05/2023 How Often Does Anyone, Including Family, Threaten You With Harm? Never Information not available 12/05/2023 How Often Does Anyone, Including Family, Scream Or Curse At You? Never Information not available 12/05/2023 Within The Past 12 Months, You Worried That Your Food Would Run Out Before You Got Money To Buy More. Sometimes True Information not available 12/05/2023 Within The Past 12 Months, The Food You Bought Just Didn't Last And You Didn't Have Money To Get More. Sometimes True Information not available 12/05/2023 How Hard Is It For You To Pay For The Very Basics Like Food, Housing, Medical Care, And Heating? Would You Say It Is: Very Hard Information not available 12/05/2023 In The Past 12 Months, Has Lack Of Reliable Transportation Kept You From Medical Appointments, Meetings, Work Or From Getting Things Needed For Daily Living? No Information not available 12/05/2023 What Is Your Housing Situation Today? I Have Housing. Information not available 12/05/2023 How Often In The Past Year Have You Used Marijuana (including Smoking, Vaping, Dabbing, Or Edibles)? Never Information not available 12/05/2023 How Often In The Past Year Have You Used Prescription Medications That Were Not Prescribed To You? Never Information n ot available 12/05/2023 How Often In The Past Year Have You Taken Your Own Prescription Medication More Than The Way It Was Prescribed Or For Different Reasons Than Its Intended Purpose? Never Information no t available 12/05/2023 How Often In The Past Year Have You Used Other Drugs (for Example, Heroin, Cocaine, Meth, Salvia, Inhalants)? Never Information not available 12/05/2023 Have You Ever Used IV Drugs? No Information not available 12/05/2023 Date Of Most Recent SBINS 12/05/2023 Information not available 12/05/2023 What Was The Date Of Your Most Recent Tobacco Screening? 06/19/2024 [email or web address] Information not available 06/19/2024 Has Tobacco Cessation Counseling Been Provided? Yes [email or web address] Information not available 06/19/2024 On What Date Was Tobacco Cessation Counseling Provided? 06/19/2024 [email or web address] Information not available 06/19/2024 Do You Or Have You Ever Used Any Other Forms Of Tobacco Or Nicotine? No Information not available 12/05/2023 Sex: Unknown Functional Status None recorded. Mental Status None recorded. Family History Nothing Reported. Medical History No medical history recorded. Gynecological HistoryNo gynecological history recorded. Obstetrics History GPAL:G 0 P 0 0 0 0 Past Encounters Encounter ID Performer Location Encounter Start Date Encounter Closed Date Diagnosis/Indication Diagnosis SNOMED-CT Code Diagnosis ICD10 Code [id number] GISSELL MORAN [facility] [place] [address] 12/08/2023 09:08:26 12/08/2023 11:15:48 Screening mammography 25431406 Z12.31 Herpes simplex 24161708 B00.9 Fibromyalgia 368635897 M 79.7 Hypothyroidism 27861158 E03.9 Wasp sting -induced anaphylaxis 659394805 T63.461A [id number] GISSELL MORAN [facility] [address] [place] [address] 03/18/2024 07:47:00 03/18/2024 09:12:08 Mild intermittent asthma 641057967 J45.20 Allergic rhinitis 727509 04 J30.9 Screening mammography 24 245902 Z12.31 Wasp sting -induced anaphylaxis 160845912 T63.461A Fibromyalgia 020111827 M 79.7 Generalize d anxiety disorder 30010631 F41.1 Hypothyroidism 61584468 E03.9 Hidradenit is suppurativa 99433415 L73.2 Hyperlipidemia 60553853 E78.5 Diabetes m ellitus screening 831570483 Z13.1 Herpes labialis 3072190 B00.1 Pain of le ft knee joint 5435731423 44224 M25.562 Pain of to e of left foot 0815030748 90334 M79.865 [id number] Nora Reese [facility] [address] [place] [address] 06/13/2024 13:32:10 06/13/2024 14:00:51 Removal of suture 73831364 Z48.02 [id number] CIRO CISNEROS PA-C [address],[facility] [address] [place] [address] 06/19/2024 13:35:12 06/19/2024 15:59:04 wound disruption 664595141 O90.0 Health Concerns Section Related Observation LastModified by Organization Detai ls LastModified Time None Recorded Concern Status LastModified by Organization Details LastModified Time None Recorded Advance Directives Directive None Recorded Payers Encounter Date Sequence Insurance Name Policy Number Policy Chanel Covered Member ID Chanel Member ID Guarantor Name 12/08/2023 1 *SELF PAY* Carlos Castrejon 03/18/2024 1 MEDICARE B-PA: [employer] Madina Castrejon [id number] Madina Castrejon 03/18/2024 1 [facility] - MEDICARE ADVANTAGE (MEDICARE REPLACEMENT O) [id number] Madina Castrejon [id number] Madina Castrejon 06/19/2024 1 [facility] (MEDICARE REPLACEMENT HMO) [id number] Madina Castrejon [id number] Madina Castrejon Notes Date Note Type Note Provider Name and Address Organization Details Recorded Time 12/08/2023 text/html HPI Notes: Pt. 63-F, here to establish care. [place] is returning to [place] from [place] after being there since 1998. She has PMH notable for, hypothyroid, fibromyalgia, Herpes Simplex. 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 She then had recurrence of growth and then went to [facility] [place] they then did radiation ablation. Pt. reports she had recurrence she thinks 2000 and then had another round of iodine ablation which was not effective, then she was referred to another specialist. She has [address] that were were slightly irregular, but they are stable. She is having [place] surveillance every 3 years. She believes she is due again in 2024. She reports her thyroid has been checked about every 12 months and she reports. Asthma: She reports good control with Albuterol as needed. Allergic Rhinitis: She will use claritin. and add on a benedryl if severe. She has trialed nasal spray in the event. j Skin Infectin/Folliculit is/Hidradenitis Supparativa? Pt. gives recent history this last fall of repeated recurrence of of very sore inguinal lesion. It was biopsied, but no definitive diagnosis. Cephalexin was very helpful in helpful. Fibromyalgia: Pt. reports she has had this a while. Gabapentin has been effective for a long time. She reports having never broken a controlled substance agreement. Herpes Simples: PT. reports that Valacyclovir was not effective. She reports that famciclovir when necessary. Depression/Anxiety/ PTSD: Taking Duloxetine at 60 mg which she feels is helpful. She also takes Buspar which she takes at night helps her to sleep. Surgical Hx: 0-T-bkmklygb, TKR on Left side, she reports she needs a new liner. Bilateral carpal tunnel, Right side ulnar nerve transposition, R. rotator cuff surgery w/biceps tendon repair. then L-shoulder rotator repair in 2021. 4 subtotal thyroidectomy. She also had toe surgery bilaterally to straighten her toes out. Breast Cancer Screening: Pt. states she is due for mammogram. Last mammogram was 2021. She denies breast lumps, bumps, dimples, skin changes, nipple discharge, or armpit pain. Peripheral Nerve Disease: Pt. reports having profound cold exposure when she was young. She reports she a nerve conduction study before her toe surgery where the abnormality was revealed. She reports left sided sciatica. She reports she had L1-L4 had bone spurs. She has not had any PT. She states she looks forward to walking more this spring. Cholesterol: Pt. had allergy to Lipitor. GISSELL MORAN [address], [place], [address], [place] [facility]. 12/11/2023 13:39:06 03/18/2024 text/html HPI Notes: Pt. 63-F, here for follow up. . [place] is returning to [place] from [place] after being there since 1998. She has PMH notable for, hypothyroid, fibromyalgia, Herpes Simplex. 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 She then had recurrence of growth and then went to [facility] which they then did radiation ablation. Pt. reports she had recurrence she thinks 2000 and then had another round of iodine ablation which was not effective, then she was referred to another specialist. She has [address] that were were slightly irregular, but they are stable. She is having US surveillance every 3 years. She believes she is due again in 2024. She reports her thyroid has been checked about every 12 months and she reports. Asthma: She reports good control with Albuterol as needed. Allergic Rhinitis: She will use claritin. and add on a benedryl if severe. She has trialed nasal spray in the event. Also supplementing with cold/flu remedy occasionally. Skin Infectin/Folliculit is/Hidradenitis Supparativa? Pt. gives recent history this last fall of repeated recurrence of of very sore inguinal lesion. It was biopsied, but no definitive diagnosis. Cephalexin was very helpful in helpful. Cephlex only helpful at 500 mg QID per pt. report. Fibromyalgia: Pt. reports she has had this a while. Gabapentin has been effective for a long time. She reports having never broken a controlled substance agreement. Pap Screening: Pt. reports last pap was 2-years ago or maybe more recently. Record review shows 2019 pap. Herpes Simples 1. : PT. reports that Valacyclovir was not effective. She reports that famciclovir when necessary. Depression/Anxiety/ PTSD: Taking Duloxetine at 60 mg which she feels is helpful. She also takes Buspar which she takes at night helps her to sleep. Surgical Hx: 7-I-bieeieyg, TKR on Left side, she reports she needs a new liner. Bilateral carpal tunnel, Right side ulnar nerve transposition, R. rotator cuff surgery w/biceps tendon repair. then L-shoulder rotator repair in 2021. 4 subtotal thyroidectomy. She also had toe surgery bilaterally to straighten her toes out. Breast Cancer Screening: Pt. was ordered a mammogram last visit on 12/08/2023 by myself. Mammo not done at this time, but pt. informs me it's actually scheduled today. Last mammogram was 2021. She denies breast lumps, bumps, dimples, skin changes, nipple discharge, or armpit pain. Peripheral Nerve Disease: Pt. reports having profound cold exposure when she was young. She reports she a nerve conduction study before her toe surgery where the abnormality was revealed. She reports hx of left sided sciatica. She reports she had L1-L4 had bone spurs. She has not had any PT. She states she looks forward to walking more this spring. Cholesterol: Pt. had allergy to Lipitor. Would like to check cholesterol today. Eating improved diet over last 8-months or so. GISSELL MORAN [address], [place], [address], [facility]. 03/18/2024 13:07:24 06/19/2024 text/html HPI Notes: Miller booker is a 63-year-old female who presents for evaluation of opening of her scar which occurred this past . She states that for the past 14 years she has had intermittent episodes with this where sometimes a will open and drain a bit. She states that several years ago she had some testing done of the fluid and it returned susceptible for cephalexin and mupirocin which her current primary care provider has given to her to keep on hand in the event that she has some opening. This past however it was different than it usually has been. She states there was a large gush of fluid into her hand that she went to go down to bed at night. She describes it as clear but it was not thick nor thin and was not watery. She had pain in this area. She attempted to lift the pannus and used a mirror to look at the area but had some difficulty seeing it. She reports that there was an opening which she describes as about 1 to 2 cm in size and that a thick ropelike thing was sticking out similar to the size of a man's thumb. She question if maybe it was her colon. She pushed it back in and then gently massage the area. The pain improved that night. She has been taking large amounts of cephalexin since. When this first occurred she took 1500 mg of cephalexin that night followed by 1500 mg of cephalexin in the morning and at 1000 mg during the day. She did this for 2 days and then transition to 500 mg morning and evening. She reports that area is much closed now but that there is a indentation where she pushed the previous thing that was sticking out and and that she is still now having some discomfort on the left side. This now has her worried that she may have pushed something and she should not have she reports she did not go to the emergency department initially because she has panic disorder when she is in panic disorder she cannot have rational thinking. She realizes now that maybe she should have gone then. She denies other previous surgeries of the abdomen other than the 2 previous C-sections she has had. She has not had fever since onset of symptoms but does note her temperature is a bit higher today than it is usually for her. She has had no nausea or vomiting. Since being diagnosed prediabetic she has changed her diet in the last almost year and has alternation between diarrhea and constipation at baseline. Does not feel that stool has been different since this episode. She is not having any urinary symptoms. CIRO CISNEROS PA-C [address], [place], [address], [facility]. 06/19/2024 16:06:41 OBGyn Episode No OBEpisode recorded.
--- OUTSIDE RECORDS SUMMARY | 2024-06-19 16:47 | XMS_ITS | Continuity of Care Document ---
Author Organization [place] - [facility] [employer] [facility], [facility] Address [address] [place] [address] Assessment No assessment recorded. Plan of Treatment Reminders Order Date Submit Date Provider Last Modified By Organization Details Last Modified Time Details Appointments Acute 2023 01:33P M Not available Not available Not available Acute 2023 01:00P M Not available Not available Not available Follow Up 2024 10:10A M Not available Not available Not available Lab None recorded . Referral None recorded . Procedures None recorded . Surgeries None recorded . Imaging None recorded . Medication Orders None recorded . Patient TargetsNo targets recorded. Patient InstructionsNo instructions recorded. Reason for Referral Marina Sales And Service Supervisor Referral for H idradenitis suppurativa Pt, 63-F, being referred for likely Hidradenitis Supparativa, and also evaluation of a likely sebaceous cyst on her low back that she would like to have removed if possible. SHe has responded to Cephalexin for the CELESTE symptoms, and she has had these cysts in bilateral lesions. Referring Physician: Xavier Viveros, Family Medicine, Encounter Date: 03/18/2024 Orthopedic Surgeon Referral for Pain of left knee joint Pt, 63-F, gives hx. of TKR of left side in year 2013. Pt. states she has had increased pain over recent months to years and states she was informed that she required liner replacement for left knee. Pt. requesting Dr. Sibley. Referring Physician: Xavier Viveros Family Medicine, Encounter Date: 03/18/2024 Spooling Machine Operator Referral for Pain of toe of left foot Pt, 63-F, w/refractory plantar's wart on the plantar aspect of her great toe. She is hoping for definitive excisino of this PW. Referring Physician: Xavier Viveros [facility], Encounter Date: 03/18/2024 Spooling Machine Operator Referral for Pain of toe of left foot Referring Physician: Xavier Viveros [facility], Encounter Date: 05/15/2024 Endocrinology Referral for H istory of malignant neoplasm of thyroid Pt. 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 She then had recurrence of growth and then went to [facility] which they then did radiation ablation. Pt. [...] mgmt of thyroid care. Referring Physician: Xavier Viveros [facility], Encounter Date: 05/23/2024 Problems Name Problem SNOMED Code Status Onset Date Resolution Date Notes Provider Name and Address Organization Details Recorded Time Generalized anxiety disorder 82755385 Active 2023 JEREMIE GOMEZ, [facility] 4 11:51:57 Mild intermitten t asthma 412610396 Active 2023 JEREMIE GOMEZ, [facility] 4 11:52:11 Abscess 922398704 Active 2023 JEREMIE GOMEZ, [facility] 4 11:52:28 Fibromyalgi a 233989070 Active 2023 JEREMIE GOMEZ, [facility] 4 07:42:16 Herpes simplex 35690030 Active 2023 JEREMIE GOMEZ, [facility] 4 07:43:21 Hypercholes terolemia 47507096 Active 2023 MIN GARCIA MA null, [facility] 4 07:43:42 Spinal stenosis of lumbar region 14810637 Active 2023 MIN GARCIA MA null, [facility] 4 07:44:07 Peripheral nerve disease 573641856 Active 2023 MIN GARCIA MA null, [facility] 4 07:44:41 Postoperati ve hypothyroid ism 87884300 Active 2023 JEREMIE GOMEZ, [facility] 4 07:45:39 History of malignant neoplasm of thyroid 513651319 Active 2023 MIN GARCIA MA null, [facility] 4 07:45:56 Hypothyroid ism 74369651 Active 2023 GISSELL MORAN [address], [place], [address], [facility] 4 10:36:40 Wasp sting-induc ed anaphylaxis 668264332 Active [address], [place], [address], [facility] 4 11:08:53 Hidradeniti s suppurativa 20580142 Active [address], [place], [address], [facility] 4 12:44:40 Allergic rhinitis 91585576 Active [address], [place], [address], [facility] 4 08:01:36 Hyperlipide amisha 27814495 Active 2023 GISSELL MORAN [address], [place], [address], [facility] 4 08:33:34 Herpes labialis 4024065 Active [address], [place], [address], [facility] 4 08:38:12 Pain of left knee joint 3522850520344 07 Active [address], [place], [address], [facility] 4 11:59:00 Pain of toe of left foot 2247647864517 08 Active [address], [place], [address], [facility] 4 12:02:26 wound disruption 503411034 Active [address], [place], [address], [facility] 16:04:50 Problem Notes None recorded. Procedures Surgical History Date Name Laterality Status Provider Name and Address Organization Details Recorded Time 06/13/20 24 Suture/Staple removal active [address], [place], [address], [facility] 06/13/2024 14:11:35 04/08/20 19 colonoscopy completed JEREMIE GOMEZ, [facility] 12/05/2023 07:47:38 10/09/19 18 extraction of cataract completed JEREMIE GOMEZ, [facility] 12/05/2023 07:46:37 10/09/19 17 [facility]/2023 07:46:22 10/09/19 17 anterior transposition of ulnar nerve [facility] 12/05/2023 07:48:48 10/09/19 13 [facility] 12/05/2023 07:48:18 10/09/19 10 [facility] 12/05/2023 07:47:28 10/09/19 06 [facility] 12/05/2023 07:48:02 10/09/19 04 [facility] 12/05/2023 07:47:57 10/09/18 90 Thy[facility] 12/05/2023 07:47:52 10/09/18 88 section [facility] 12/05/2023 07:47:05 10/09/18 85 section [facility] 12/05/2023 07:47:00 Imaging Results None recorded. Procedure Notes None recorded. Medical Equipment None Reported. Allergies Allergen ID Allergen Name Allergen Category Reaction Reaction Severity Criticality Documentation Date Start Date Code Code System Note Provider Name and Address Organization Details Recorded Time 55578 Substance with sulfonami de structure and antibacte rial mechanism of action (substanc e) medicatio n Not available Not available Not available 12/08/2023 93609 8003 [facility]ED [facility] 4 09:44:14 59809 Dilaudid medicatio n Not available Not available Not available 12/08/2023 54644 3 RxNorm [facility] 4 09:44:20 03585 morphine medicatio n Not available Not available Not available 12/08/2023 7052 RxNoJEREMIE Jaramillo, [facility] 4 09:44:33 79878 acetamino phen / oxycodone medicatio n Not available Not available Not available 12/08/2023 32310 3 RxWin MIN HILLJEREMIE TRAN, [facility] 4 09:44:41 54068 oxycodone medicatio n Not available Not available Not available 12/08/2023 7804 RxNoJEREMIE Jaramillo, [facility] 4 09:44:49 34870 atorvasta tin medicatio n Not available Not available Not available 12/08/2023 61786 Blanka HILLCHELSEAJEREMIE, [facility] 4 09:44:56 69982 guaifenes in medicatio n Not available Not available Not available 12/08/2023 5032 RxPatlillian HILLCHELSEAJEREMIE, [facility] 4 09:45:07 79749 shellfish derived food,medi cation Not available Not available Not available 12/08/2023 MIN GARCIA JEREMIE nicole, [facility] 4 09:45:21 13450 fish derived food,medi cation Not available Not available Not available 12/08/2023 MIN GARCIA JEREMIE nicole, [facility] 4 09:45:29 28479 banana extract food,medi cation Not available Not available Not available 12/08/2023 31310 9 RxWin PALOMINOVIE LIZCHELSEAJEREMIE, [facility] 4 09:45:36 14650 nut - unspecifi ed food Not available Not available Not available 12/08/2023 MIN GARCIAJEREMIE, [facility] 4 09:45:48 97834 coconut extract food,medi cation Not available Not available Not available 12/08/2023 49027 48 RxJEREMIE Ford, [facility] 4 09:45:57 28030 annalisa extract food Not available Not available Not available 12/08/2023 82629 32 JEREMIE Malcolm, [facility] 4 09:46:04 61648 kiwi fruit extract food Not available Not available Not available 12/08/2023 76333 01 JEREMIE Malcolm, [facility] 4 09:46:12 66935 pear preparati on food Not available Not available Not available 12/08/2023 60664 25 JEREMIE Malcolm, [facility] 4 09:46:19 93557 peach food Not available Not available Not available 12/08/2023 JEREMIE GOMEZ, [facility] 4 09:46:27 90716 cultivate d mushroom extract food Not available Not available Not available 12/08/2023 96804 17 Kofilillian MIN GARCIA JEREMIE nicole, [facility] 4 09:46:34 Medications Name Sig Start [...] propionate 50 mcg/actuati on nasal spray,suspe nsion [place] 1 spray every day by intranasa l [...] Updated DateTime 4 154.94 cm 31 kg/m2 14717.1 5 g 98.4 [degF] 97 % 97 % 74 /min 18 /min 144 mm[Hg] 78 mm[Hg] Daisy Becker MA [facility]. 4 15:00:19 Social History Question Answer Notes LastModified by Organizat ion Details LastModified Time Tobacco Smoking Status Never Smoker MIN GARCIA MA null, [place] [facility]. 12/05/2023 10:56:38 Would You Say That, In [...] Of Your Most Recent Tobacco Screening? 06/19/2024 [email or web address] Information not available 06/19/2024 Has Tobacco Cessation Counseling Been Provided? Yes Information not available 06/19/2024 On What Date Was Tobacco Cessation Counseling Provided? 06/19/2024 [email or web address] Information not available 06/19/2024 Do You Or [...] Diagnosis/Indication Diagnosis SNOMED-CT Code Diagnosis ICD10 Code 8841678 Nora Reese [facility] [place] [address] [place] [address] 06/13/2024 13:32:10 06/13/2024 14:00:51 Removal of suture 97917876 Z48.02 [id number] CIRO CISNEROS PA-C [address],[facility] [address] [place] [address] 06/19/2024 13:35:12 06/19/2024 15:59:04 wound disruption 081393540 O90.0 Health Concerns Section Related Observation LastModified by Organization Detai ls LastModified Time None Recorded Concern Status LastModified by Organization Details LastModified Time None Recorded Payers Encounter Date Sequence Insurance Name Policy Number Policy Chanel Covered Member ID Chanel Member ID Guarantor Name 06/19/2024 1 [facility] (MEDICARE REPLACEMENT HMO) [id number] Madina Castrejon [id number] Madina Castrejon Notes Date Note Type Note Provider Name and Address Organization Details Recorded Time 06/19/2024 text/html HPI Notes: Miller booker is [...] She is not having any urinary symptoms. [address], [place], [address], [facility]. 06/19/2024 16:06:41 OBGyn Episode No OBEpisode recorded.
[2024-06-19 17:20] LABS: Abs Immature Grans 0.02 10^3/uL (0.0-0.06); Absolute Basophil Count 0.03 10^3/uL (0.0-0.2); Absolute Eosinophil Count 0.19 10^3/uL (0.0-0.7); Absolute Lymphocyte Count 2.22 10^3/uL (1.2-3.4); Absolute Monocyte Count 0.42 10^3/uL (0.1-0.8); Absolute Neutrophil Count 4.53 10^3/uL (1.2-6.7); Basophils % 0.4 %; Eosinophils % 2.6 %; HCT 41.1 % (36.0-46.0); HGB 13.4 g/dL (11.2-15.7); Immature Grans % 0.3 %; MCH 29.8 pg (27.0-33.0); MCHC 32.6 % (32.0-36.0); MCV 91 fL (80-95); MPV 9.5 fL (8.0-11.0); Monocytes % 5.7 %; Platelet Count 280 10^3/uL (130-400); RDW 14.3 % (11.7-14.6); RDW-SD 48.3 fL; WBC 7.41 10^3/uL (4.4-10.8)
[2024-06-19 17:26] LABS: Anion Gap 7.1 mmol/L (3-11); BUN 13 mg/dL (7-18); CO2 28.9 mmol/L (21.0-32.0); CREATININE 0.7 mg/dL (0.55-1.02); Calcium 8.4 mg/dL (8.5-10.1); Chloride 104 mmol/L (98-107); Estimated GFR 96.52 (mL/min/1.73m2); Glucose 94 mg/dL (74-106); Potassium 4.2 mmol/L (3.5-5.1); Sodium 140 mmol/L (136-145)
[2024-06-19] MEDS: Lactated Ringers 1,000 ML 1000 ML IV (17:26)
[2024-06-19] MEDS: Normal Saline - Diluent 50 ML VIAL IJ (17:50)
[2024-06-19] MEDS: Omnipaque 350 MG/ML 100 ML BTL IJ (17:54)
[2024-06-19 18:49] VITALS: RESP 18
[2024-06-19 18:57] VITALS: BP 154/81; PULSE 79; RESP 16; O2SAT 97
== END 2024-06-19 18:51 | disposition home or self-care (01) ==
PROVIDERS: Emergency Provider Emergency Medicine; PCP Student in an Organized Health Care Education/Training Program
DX: R10.30 Lower abdominal pain, unspecified (principal)
CPT/HCPCS: 80048; 96360; 99285; 74177; 85025; 99283; J3490

== ENCOUNTER 2024-07-12 15:52 | Outpatient (REF) | payer MEDICARE, SELFPAY ==
--- OUTSIDE RECORDS SUMMARY | 2024-07-12 15:53 | XMS_ITS | Encounter Summary ---
Author Organization [facility] Address [facility] [address] [place] [address] Care Team Providers Care Rn Family Name Role Phone Xavier Viveros Primary Care Provider + Encounter Details Date Type Department Care Team (Latest Contact Info) Description 06/04/2024 Travel Social History Tobacco Use Types Packs/Day Years Used Date Smoking Tobacco: Never Assessed Sex and Gender Information Value Date Recorded Sex Assigned at Not on file Gender Identity Not on file Sexual Orientation Not on file documented as of this encounter Plan of Treatment Upcoming Encounters Date Type Department Care Team (Late st Contact Info) Description 08/27/2024 8:30 AM EST Office [place] [address] Taras Thompson MD [facility] [place] [address] documented as of this encounter Visit Diagnoses Not on filedocumented in this encounter Care Teams Rn Family Relationship Specialty Start Date End Date Xavier Viveros PA [facility] [place] [place] [address] PCP - General Internal Medicine 04/01/24 documented as of this encounter
--- OUTSIDE RECORDS SUMMARY | 2024-07-12 15:53 | XMS_ITS | Encounter Summary ---
Author Organization [facility] Address [facility] [place] [address] Care Team Providers Care Fish Flipper Name Role Phone Xavier Viveros Primary Care Provider + Encounter Details Date Type Department Care Team (Late st Contact Info) Description 06/09/2024 Transcribe Orders eDH Incoming Referrals [phone] Xavier Viveros PA [address], [place] [id number] Social History Tobacco Use Types Packs/Day Years [...] 8:30 AM EST Office Visit [place] [address] Taras Thompson MD [facility] [place] [address] documented as of this encounter Visit Diagnoses Not on filedocumented in this encounter Care Teams Fish Flipper Relationship Specialty Start Date End Date Xavier Viveros PA [address], [place] [address] PCP - General Internal Medicine 04/01/24 documented as of this encounter
--- OUTSIDE RECORDS SUMMARY | 2024-07-12 15:53 | XMS_ITS | Clinical Summary ---
Author Organization [facility] [place] [address] Care Team Providers Care Tomb Maker Helper Name Role Phone Xavier Viveros Primary Care Provider + Allergies Active Allergy Reactions Criticality Noted Date Comments Atorvastatin 06/04/2024 Banana Anaphylaxis High 06/04/2024 Coconut Anaphylaxis High 06/04/2024 Codeine 06/04/2024 Meperidine 06/04/2024 Hydromorphone 06/04/2024 Fish Containing Products 06/04/2024 Guaifenesin 06/04/2024 Nose bleeds Kiwi (Actinidia Chinensis) [place] 06/04/2024 Mushroom 06/04/2024 Opioids - Morphine Analogues 024 Oxycodone 06/04/2024 Stone Fruit 06/04/2024 Pears 06/04/2024 Oxycodone-Acetaminophen 06/04/2024 Shellfish Containing Products 2023 Sulfa (Sulfonamide Antibiotics) 05/10 Ketorolac 06/04/2024 Tree Nuts 06/04/2024 Medications No known medications Encounters Date Type Department Care Team Description 06/09/2024 Transcribe Orders eD Incoming Referrals [phone] Xavier Viveros PA Personal history of malignant neoplasm of thyroid 06/09/2024 Transcribe Orders eDH Incoming Referrals [phone] Xavier Viveros PA 06/04/2024 11:00 AM EDT Office Visit Dermatology at [facility] [address] [place] [address] Roxi Ruiz MD Neoplasm of unspecified behavior of bone, soft tissue, and skin; Sebaceous hyperplasia; Melanocytic nevus, unspecified location; Greene angioma; SK (seborrheic keratosis); Solar lentigo 06/04/2024 10:30 AM EDT Office Visit Dermatology at [address] [place] [address] Roxi Ruiz MD Skin tag; SK (seborrheic keratosis) 06/04/2024 Travel from Last 3 Months Social History Tobacco Use Types Packs/Day Years Used Date Smoking Tobacco: Never Assessed Sex and Gender Information Value Date Recorded Sex Assigned at Not on file Gender Identity Not on file Sexual Orientation Not on file Plan of Treatment Upcoming Encounters Date Type Department Care Team (Late st Contact Info) Description 08/27/2024 8:30 AM EST Office [place] [address] Taras Thompson MD [facility] [place] [address] Health Maintenance Due Date Last Done Comments CT Colonography 1959 Colonoscopy 1959 Colorectal Cancer Screening 1959 FIT DNA 1959 FIT 1959 Sigmoidoscopy (10 year) with FIT yearly 1959 Sigmoidoscopy 1959 HIV screen 1977 Hepatitis C Screening 1977 Tetanus/Diphtheria/Pertussis Vaccines (1 - Tdap) 09/21 HPV test 1989 PAP Smear 1989 Breast Cancer Share Decision Needed 1999 Breast Cancer screening 1999 Zoster vaccine (1 of 2) 2009 Advance Directive 2014 Covid-19 Vaccine ( - season) 2024 Influenza (Flu) vaccine (1 o f 1 - Influenza standard series) 06/09/2024 Procedures Procedure Name Priority Date/Time Associated Diagnosis Comments SURGICAL PATHOLOGY, DERMATOLOGY Routine 06/04/2024 11:03 AM EDT Neoplasm of unspecified behavior of bone, soft tissue, and skin from Last 3 Months Results * Surgical Pathology, Dermatology (06/04/2024 11:03 AM EDT) Case Report Surgical Pathology Report ? Case: [id number] ? Authorizing Provider: ??Roxi Ruiz MD ? Collected: ? 06/04/2024 1103 ? Ordering Location: ? Dermatology at [facility] Received: ?06/04/2024 1153 ? Pathologist: ? Arturo Trinidad MD ? Specimen: ?Back, Lower Right ? 06/06/2024 11:41 AM EDT [facility] Final Diagnosis A. Back, Lower Right, Punch biopsy: Epidermal inclusion cyst 06/06/2024 11:41 AM EDT [facility] Clinical Information A. EIC - 4mm cystic nodule on the right lower back 06/06/2024 11:41 AM EDT [facility] Gross Description A. Back, Lower Right. Labeled/Fixativ e: Back, lower right, formalin. Quantity/Size: Single, 0.6 x 0.6 cm, excised to depth of 0.6 cm. Tissue Description: Hay-vázquez hairbearing circular skin punch with a 0.2 x 0.2 cm circular, hay-brown, crater-like lesion which communicates with an underlying hay-brown, 0.5 x 0.5 x 0.4 cm intact cystlike structure within the subcutaneous tissue. Sections/Proces sing: Inked, bisected and entirely submitted in 1 cassette labeled A1. 06/06/2024 11:41 AM EDT [facility] Result Note Routine 06/06/2024 11:41 AM EDT [facility] Skin SKIN STRUCTURE OF LOWER BACK / Unknown Non Blood Collection / Unknown 06/04/2024 11:03 AM EDT 06/04/2024 11:53 AM EDT Roxi Ruiz MD PATHOLOGY/CYTOLOGY ORDERABLES [facility] [place] [address] from Last 3 Months Care Teams Tomb Maker Helper Relationship Specialty Start Date End Date Xavier [place] [address] PCP - General Internal Medicine 04/01/24
--- OUTSIDE RECORDS SUMMARY | 2024-07-12 15:53 | XMS_ITS | Encounter Summary ---
Author Organization [facility] [place] [address] Care Team Providers Care Mechanical Shop Laborer Name Role Phone Xavier Viveros Primary Care Provider + Reason for Referral * Consultation (Priority 3) - Authorized Specialty Diagnoses / Procedures Referred By Contbonnie t Referred To Contact Dermatology Diagnoses Hidradenitis suppurativa SEBACEOUS CYST ON LOW BACK. Xavier Viveros PA [address] [place] [address] [facility] Dermat[facility] [address] [place] [address] Referral ID Status Reason Start Date Expiration Date Visits Requested Visits Authorized [id number] Authorized Consult, Test & Treat PCP Updated and/or Approved 03/20/2024 09/19/2024 6 6 Encounter Details Date Type Department Care Team (Late st Contact Info) Description 04/01/2024 Transcribe Orders eDH Incoming Referrals [phone] Xavier Viveros PA [address] [place], [place] [id number] Hidradenitis suppurativa Social History Tobacco Use Types Packs/Day Years [...] 8:30 AM EST Office Visit [place] [address] Taras Thompson MD [facility] [place] [address] Scheduled Referrals Name Type Priority Associated Diagnoses Orde r Schedule Referral to Dermatology Outpatient Referral Routine Hidradenitis suppurativa Ordered: 04/01/2024 documented as of this encounter Visit Diagnoses Diagnosis Hidradenitis suppurativa Hidradenitis documented in this encounter Care Teams Mechanical Shop Laborer Relationship Specialty Start Date End Date Xavier Viveros PA [facility] [place] [address] PCP - General Internal Medicine 04/01/24 documented as of this encounter
--- OUTSIDE RECORDS SUMMARY | 2024-07-12 15:53 | XMS_ITS | Encounter Summary ---
Author Organization [facility] Address [facility] [place] [address] Care Team Providers Care Warehouse Analyst Name Role Phone Xavier Viveros Primary Care Provider + Encounter Details Date Type Department Care Team (Late st Contact Info) Description 06/04/2024 10:30 AM EDT Office Visit Dermatology at [facility] [address] [place] [address] Roxi Ruiz MD [facility] [place] [address] Skin tag; SK (seborrheic keratosis) Social History Tobacco Use Types Packs/Day Years Used Date Smoking Tobacco: Never Assessed Sex and Gender Information Value Date Recorded Sex Assigned at Not on file Gender Identity Not on file Sexual Orientation Not on file documented as of this encounter Progress Notes * Roxi Ruiz MD - 06/04/2024 10:30 AM EDT Images from the original note were not included. DEPARTMENT OF DERMATOLOGY Cosmetic Dermatology Clinic Provider: Roxi Ruiz MD History of Present Illness: Madina Castrejon is a 63 y.o.. Patient returns to the clinic for cosmetic treatment of skin tags on the neckline. Medications: Reviewed in eD-H Allergies: Reviewed in eD-H Skin Examination: Focused skin examination of the neckline was normal with the exception of the findings below. Assessment/Plan: #. Skin Tags - Sessile/pedunculated, flesh-colored papules on the right neck x3, central neck x1, left neck x4 - Discussed benign nature and provided reassurance. No treatment necessary at this time. - Discussed option of cosmetic removal. Patient quoted $100 for removal of 1-10, and $200 for removal of 11-20. Informed patient that this procedure is considered cosmetic and is not covered by insurance. Patient is aware that payment is expected in full at the time of service. - Patient elects to proceed with cosmetic removal today. Procedure: Skin snip removal using scissors. Location(s): As noted above. Number: 8 Indications and expectations, including risks and benefits, discussed. Verbal consent obtained. Skin prepped with alcohol. Local anesthesia administered with 1% xylocaine, 1:100,000 epinephrine. Lesion(s) removed with scissors. Hemostasis obtained (AlCl3, Monsel's, and/or electrocautery) as needed.Specimen(s) were NOT sent to Pathology. There were no complications; patient tolerated procedure wel l. Wound(s) dressed with adhesive bandage as needed. Post-procedure expectations, wound care, and activity restrictions reviewed. - Cosmetic charge: $100; patient paid before exiting the clinic today. #. Seborrheic Keratoses - [place]-brown papules/plaques with waxy, stuck-on appearance scattered on the right back x1, left back x1 - Explained that these are hereditary and adult-acquired. Reassured patient of benign nature. No treatment necessary. - Discussed option of cosmetic removal with cryotherapy. Patient quoted $100 for removal of 1-10, and $200 for removal of 11-20. Informed patient that this procedure is considered cosmetic and is notcovered by insurance. Patient is aware that payment for this procedure is due in full at the time of service. - Patient elects to proceed with cosmetic removal today. Advised patient multiple treatments may berequired. Procedure: Destruction of benign lesion(s) with cryotherapy (LN2). Location(s): As noted above. Number: 2 Indication and expectations, including risks (especially hypopigmentation) and benefits, discussed.Possibility of recurrence and need for additional treatment reviewed. Verbal consent obtained. Frozen with LN2, 15-30 second thaw time, twice. There were no complications; patient tolerated procedurewell. Post- procedure expectations and wound care reviewed. Total cosmetic charge for the above procedure(s): $100; patient paid before exiting the clinic today. RTC: PRN []Note routed to accredited legal secretary []Recall placed in scheduling system []Appointment scheduled at checkout Scribe attestation: JANET Qiu has performed the documentation for this encounter in the presence of and acting as a scribe for Roxi Ruiz MD. I performed the above scribed service and agree with the accuracy of the documentation in this encounter. Reviewed and signed by: Roxi Ruiz MD Dermatology [facility] documented in this encounter Plan of Treatment Upcoming Encounters Date Type Department Care Team (Late st Contact Info) Description 08/27/2024 8:30 AM EST Office [place] [address] Taras Thompson MD [facility] [place] [address] documented as of this encounter Visit Diagnoses Diagnosis Skin tag Unspecified hypertrophic and atrophic condition of skin SK (seborrheic keratosis) Other seborrheic keratosis documented in this encounter Care Teams Warehouse Analyst Relationship Specialty Start Date End Date Xavier Viveros PA [facility] [place] [address] PCP - General Internal Medicine 04/01/24 documented as of this encounter
--- OUTSIDE RECORDS SUMMARY | 2024-07-12 15:53 | XMS_ITS | Encounter Summary ---
Author Organization [facility] Address [facility] [place] [address] Care Team Providers Care Senior Clinical Data Coordinator Name Role Phone Xavier Viveros Primary Care Provider + Reason for Visit * Consultation (Priority 3) - Authorized Specialty Diagnoses / Procedures Referred By Contbonnie t Referred To Contact Dermatology Diagnoses Hidradenitis suppurativa SEBACEOUS CYST ON LOW BACK. Xavier Viveros PA [address] [place] [address] [place] [address] [facility] [address] [place] [address] Referral ID Status Reason Start Date Expiration Date Visits Requested Visits Authorized [id number] Authorized Consult, Test & Treat PCP Updated and/or Approved 03/20/2024 09/19/2024 6 6 Encounter Details Date Type Department Care Team (Late st Contact Info) Description 06/04/2024 11:00 AM EDT Office Visit Dermatology at [facility] [address] [place] [phone] Roxi Ruiz MD [facility] [address] [facility] [place] [address] Neoplasm of unspecified behavior of bone, soft tissue, and skin; Sebaceous hyperplasia; Melanocytic nevus, unspecified location; Greene angioma; SK (seborrheic keratosis); Solar lentigo Social History Tobacco Use Types Packs/Day Years Used Date Smoking Tobacco: Never Assessed Sex and Gender Information Value Date Recorded Sex Assigned at Not on file Gender Identity Not on file Sexual Orientation Not on file documented as of this encounter Progress Notes * Roxi Ruiz MD - 06/04/2024 11:00 AM EDT Images from the original note were not included. DEPARTMENT OF DERMATOLOGY Medical Dermatology Clinic Provider: Roxi Ruiz MD Patient's preferred name Madina Preferred contact method for results [x]Phone []myD-H []Letter Detailed phone message OK? yes Are there any other people with whom we may discuss your care? Past Medical History Date, location, treatment Melanoma no Dysplastic nevi no SCC no BCC no AKs no UV Exposure & Protection N Other relevant past medical history Family History Details Melanoma no NMSC no Other relevant family history no Social History Occupation: Hobbies: Other: Pre-Procedure Screening Details Allergy to lidocaine, epinephrine, Dermabond, chlorhexidine, or adhesives no Bleeding disorder or blood thinners no Pacemaker, defibrillator, deep brain stimulator, cochlear implant no History of Present Illness: Madina Castrejon is a 63 y.o. Patient is referred to hidradenitis suppurativa clinic by GISSELL Berger, for Hidradenitis suppurativa: - however the patient does not know of this diagnosis. - She is wondering about a spot on superior central buttocks, been present for about 4 years plus, drains and then fills back up, discomfort Medications: Reviewed in eD-H Allergies: Reviewed in eD-H Skin Examination: Full skin examination: Patient asked to undress to their comfort level. Verbalized that the provider???s preference is that the patient remove all clothing and that the provider will not examine areas patient elects to keep covered. Patient elects to keep underwear on and have the following examined: scalp, hair, face, ears, neck, chest, axillae, abdomen, back, and upper and lower extremities. Genitalia and buttocks were not examined. Assessment/Plan #. EIC - 4mm cystic nodule on the right lower back - Recommended a skin biopsy. After discussion of potential risks (scarring, bleeding, infection), patient agreed to proceed. - Patient denies known allergies to lidocaine and epinephrine. Procedure: Skin punch biopsy. Location: right lower back Time of procedure: 10:51 AM Discussed indications for the procedure and expectations including risks and benefits. Verbal consent obtained. Time out performed. Skin prepped with alcohol. Local anesthesia with 1% xylocaine, 1/100,000 epinephrine. A 6 mm punch biopsy to the level of the subcutis was performed. Specimen submitted to Pathology. Wound closed with monofilament suture. There were no complications; patient tolerated the procedure well. Wound dressed. Post-procedure expectations (including discomfort management), wound care and activity restrictions reviewed. - Follow-up based on pathology results. - Suture removal: 10-14 days. #. Sebaceous hyperplasia-yellow papules with crown of vessels and central dell on dermoscopy -advised lesions are benign increase in size of glands and that if bothersome can be treated cosmetically # Melanocytic Nevi- scattered brown macules and papules on trunk and extremities with reassuring pigment pattern on dermoscopy - Discussed benign appearing nevi based on today's exam - Recommended follow-up with dermatology if any changes in any pigmented lesions are noted or any concerns regarding new lesions arise. #. Greene Angiomas - Multiple bright red, well-demarcated papules on the trunk and extremities. - Discussed benign nature of lesions and provided reassurance. No treatment necessary at this time. #. Seborrheic Keratoses - Stuck on, waxy papules on the trunk and extremities. - Discussed benign nature of lesions and provided reassurance. No treatment necessary at this time. #. Solar Lentigines - Light-brown evenly pigmented, well-demarcated macules on sun exposed areas ofthe skin. - Patient reassured of benign nature. #. Reason for referral- patient does not have a diagnosis of hidradenitis suppurativa and I discussed this with her - does not need f/u in [facility] clinic Other: Sun protection discussed (protective clothing and SPF30+ broad-spectrum sunscreen) RTC: 2-3 year full skin exam // sooner as needed []Note routed to patient care secretary [x]Recall placed in scheduling system []Appointment scheduled at checkout Scribe attestation: JANET Qiu has performed the documentation for this encounter in the presence of and acting as a scribe for Roxi Ruiz MD. I performed the above scribed service and agree with the accuracy of the documentation in this encounter. Reviewed and signed by: Roxi Ruiz MD Dermatology [facility] * Roxi Ruiz MD - 06/04/2024 11:00 AM EDT Final Diagnosis A. Back, Lower Right, Punch biopsy: Epidermal inclusion cyst Reviewed benign result of cyst, no further treatment is needed. Verencie, can you please let Madina know? documented in this encounter Plan of Treatment Upcoming Encounters Date Type Department Care Team (Late st Contact Info) Description 08/27/2024 8:30 AM EST Office [place] [address] Taras Thompson MD [facility] [place] [address] documented as of this encounter Procedures Procedure Name Priority Date/Time Associated Diagnosis Comments SURGICAL PATHOLOGY, DERMATOLOGY Routine 06/04/2024 11:03 AM EDT Neoplasm of unspecified behavior of bone, soft tissue, and skin documented in this encounter Results * Surgical Pathology, Dermatology (06/04/2024 11:03 AM EDT) Case Report Surgical Pathology Report ? Case: [id number] ? Authorizing Provider: ??Roxi Ruiz MD ? Collected: ? 06/04/2024 1103 ? Ordering Location: ? Dermatology at [facility] Received: ?06/04/2024 1153 ? Pathologist: ? Arturo Trinidad MD ? Specimen: ?Back, Lower Right ? 06/06/2024 11:41 AM EDT [facility] Final Diagnosis A. Back, Lower Right, Punch biopsy: Epidermal inclusion cyst 06/06/2024 11:41 AM EDT [facility] Clinical Information A. EIC - 4mm cystic nodule on the right lower back 06/06/2024 11:41 AM EDT [facility] Gross Description A. Back, Lower Right. [...] cassette labeled A1. 06/06/2024 11:41 AM EDT [facility] Result Note Routine 06/06/2024 11:41 AM EDT [facility] Skin SKIN STRUCTURE OF LOWER BACK / Unknown Non Blood Collection / Unknown 06/04/2024 11:03 AM EDT 06/04/2024 11:53 AM EDT Roxi Ruiz MD PATHOLOGY/CYTOLOGY ORDERABLES [facility] [place] [phone] documented in this encounter Visit Diagnoses Diagnosis Neoplasm of unspecified behavior of bone, soft tissue, and skin Sebaceous hyperplasia Other specified disease of sebaceous glands Melanocytic nevus, unspecified location Greene angioma Nevus, non-neoplastic SK (seborrheic keratosis) Other seborrheic keratosis Solar lentigo Other dyschromia documented in this encounter Care Teams Senior Clinical Data Coordinator Relationship Specialty Start Date End Date Xavier [place] [address] PCP - General Internal Medicine 04/01/24 documented as of this encounter
--- OUTSIDE RECORDS SUMMARY | 2024-07-12 15:53 | XMS_ITS | Encounter Summary ---
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 SHE THEN HAS RECURRENCE OF GROWTH AND [place] [facility] [place] RADIATION ABLATION. PT REPORTS SHE HAD RECURRENCE SHE THINKS 2000 AND THEN HAD ANOTHER ROUND OF IODINE ABLATION WHICH WAS NOT EFFECTIVE, THEN SHE WAS REFERRED TO ANOTHER SPECIALIST. SHE HAS [address] THAT WERE WERE SLIGHTLY IRREGULAR, BUT THEY ARE STABLE. SHE IS HAVING US SURVEILLANCE EVERY 3 YEARS. SHE BELIEVES SHE IS DUE AGAIN IN 2024. SHE REPORTS HER THYROID HAS BEEN CHECKED ABOUT EVERY12 MONTHS. PT REQUESTING SURVEILLANCE BU ENDOCRINE SPECIALIST FOR MGMT OF THYROID CARE. Xavier Viveros PA [address] [place] [address] [facility] Endocrinology [address] [place] [phone] Referral ID Status Reason Start Date Expiration Date Visits Requested Visits Authorized [id number] Authorized Consult, Test & Treat PCP Updated and/or Approved 05/23/2024 05/23/2025 6 6 Encounter Details Date Type Department Care Team (Late st Contact Info) Description 06/09/2024 Transcribe Orders eDH Incoming Referrals [phone] Xavier Viveros PA [address] [place] [address] Personal history of malignant neoplasm of thyroid Social History Tobacco Use Types Packs/Day Years [...] 8:30 AM EST [place] [address] Taras Thompson MD [facility] [place] [address] Scheduled Referrals Name Type Priority Associated Diagnoses Order Schedule Referral to Endocrinology Outpatient Referral Routine Personal history of malignant neoplasm of thyroid Ordered: 06/09/2024 documented as of this encounter Visit Diagnoses Diagnosis Personal history of malignant neoplasm of thyroid documented in this encounter Care Teams Associate Pastor Relationship Specialty Start Date End Date Xavier [place] [address] PCP - General Internal Medicine 04/01/24 documented as of this encounter
--- OUTSIDE RECORDS SUMMARY | 2024-07-12 15:54 | XMS_ITS | Continuity of Care Document ---
Author Organization [place] - [facility] [employer] [facility], [facility] Address [address] [place] [address] Assessment No assessment recorded. Plan of Treatment Reminders Order Date Submit Date Provider Last Modified By Organization Details Last Modified Time Details Appointments Follow Up 30 2023 11:30A M Not available Not available Not available Annual Wellness Exam 40 2024 10:10A M Not available Not available Not available Lab None recorded. Referral None recorded. Procedures None recorded. Surgeries None recorded. Imaging None recorded. Medication Orders None recorded. Patient TargetsNo targets recorded. Patient InstructionsNo instructions recorded. Reason for Referral Financial Services Intern Referral for H idradenitis suppurativa Pt, 63-F, being referred for likely Hidradenitis Supparativa, and also evaluation of a likely sebaceous cyst on her low back that she would like to have removed if possible. SHe has responded to Cephalexin for the CELESTE symptoms, and she has had these cysts in bilateral lesions. 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 She then had recurrence of growth and then went to [facility] which they then did radiation ablation. Pt. [...] of thyroid care. Referring Physician: Xavier Viveros, [facility], Encounter Date: 05/23/2024 Results Created Date Observation Date Name Description Value Unit Range Abnormal Flag Note LastModifiedBy Organization Detail LastModifiedTime 06/19/20 24 06/19/2024 CT imagi ng repor t Patien t Name: Miller Castrejon Unit #: [id number] Loc: ER Orderi ng Provid er: Adryan Veloz M.D. Accoun t #: [id number] Status : REG ER Primar y Care Provid er: Sha Viveros Date of Exam: 06/09 11/01 Sex: F : 1959 Age: 63 Exam(s ) a CT:CT abdome n pelvis w Exam(s ) CT ABDOME N PELVIS W EXAM: CT ABDOME N PELVIS W CLINIC AL HISTOR Y: LLQ rednes s/tend erness TECHNI QUE: Imagin g Protoc ol: Axial comput ed tomogr aphy images with alexis l and sagitt al reform atted images were create d and review ed. CONTRA ST MATERI AL: Intrav enous: Omnipa que [address] volume :100 mL Oral: No COMPAR TEAGAN: No exams were availa ble for compar teagan FINDIN GS: ABDOME N: Lung Bases: There is a small hiatal hernia . Liver: Normal densit y. There are few tiny hypode nsitie s in the liver. They are too small for furthe r charac teriza tion but likely reflec t small cysts. Portal , Superi or Mesent avani, and Spleni c Veins: Unrema rkable . Gallbl adder and Biliar y Tract: No radiod ense calcul us or dilati on. Pancre as: Normal densit y, no abnorm al calcif icatio ns or inflam matory proces s. Spleen : Normal . Adrena ls: No masses seen. Kidney s: Normal size, contou r and axis. No radiod ense stones or obstru ctive uropat hy. No masses seen. Abdomi nal Aorta: Abdomi nal portio n non-di lated. Athero sclero tic calcif icatio n is presen t. Bowel: No obstru ction or bowel wall thicke ana cristina. There is a modera te amount of stool in the colon sugges ting consti pation . No eviden ce of append icitis . Perito peng Cavity : No ascite s, collec tion or mesent avani inflam matory respon se. There are few tiny foci of air seen in the perito neum adjace nt to the into superi or liver (serie s 9 images 4 throug h 10.) (sagit seamus image 37 series 7). Lymph Nodes: Within normal limits . Bones: Within normal limits for the patien t's age. Soft Tissue s: Unrema rkable . PELVIS : Bladde r: Symmet papo disten tion, no gross wall thicke ana cristina. Reprod uctive Organs : Unrema rkable as visual ized. Lymph Nodes: Within normal limits . Bones: Within normal limits for the patien t's age. IMPRES STEFF: 1. No eviden ce of a subcut aneous fluid collec tion or mass. No subcut aneous air is seen. The abdomi nal wall appear s intact . 2. There is no eviden ce of bowel wall thicke ana cristina or obstru ction. 3. Modera te amount of stool in the colon. This may repres ent consti pation . 4. A few tiny foci of what appear to be pneumo perito neum around the liver. A follow -up CT scan of the abdome n and pelvis is recomm ended to reasse ss the pneumo perito neum. 5. Findin gs were discus sed with Dr. Veloz at 6:30 p.m. on 024. RADIAT ION DOSE DELIVE RED: 494.59 mGy.cm Total DLP DATA REPOSI TORY: All CT scans at this [facility] ty are submit adelina to the [facility] al Radiol ogy Data Regist ry (NRDR) Dose Index Regist ry (DIR) with the [place] an Geraldine booker of Radiol ogy (ACR). RADIAT ION OPTIMI ZATION : All CT scans at this [facility] use at least one of these dose optimi zation techni ques: automa adelina exposu re contro l; mA and/or kV adjust ment per patien t size (inclu karina target ed exams where dose is matche d to clinic al indica tion); or iterat sylvain recons tructi on. 027: Total DLP = 0.00 mGy-cm Ordere d By: Adryan Veloz M.D. CC: ------ ------ ------ ------ ------ ------ ------ ------ ------ ------ ------ ------ ---- Dictat ed By: Adryan Soriano M.D. 1831 Transc ribed By: Adryan Soriano 1831 This is privil eged, confid ential inform ation intend ed only for the provid er named. Any use or distri bution by any person other than this provid er is strict ly prohib ited. If you receiv e this report in error, please notify us immedi ately at [phone] and return the origin al report to us at the addres s above. Thank- you. [facility] [address] [place], [address] 06/19/2024 18:42:56 Result Notes None recorded. Problems Name Problem SNOMED Code Status Onset Date Resolution Date Notes Provider Name and Address Organization Details Recorded Time Generalized anxiety disorder 63467909 Active 2023 JEREMIE GOMEZ, [facility] 4 11:51:57 Mild intermitten t asthma 070287017 Active 2023 JEREMIE GOMEZ, [facility] 4 11:52:11 Abscess 796788565 Active 2023 JEREMIE GOMEZ, [facility] 4 11:52:28 Fibromyalgi a 512691056 Active 2023 JEREMIE GOMEZ, [facility] 4 07:42:16 Herpes simplex 31001776 Active 2023 JEREMIE GOMEZ, [facility] 4 07:43:21 Hypercholes terolemia 45270133 Active 2023 MINJEREMIE REED, [facility] 4 07:43:42 Spinal stenosis of lumbar region 40953905 Active 2023 JEREMIE GOMEZ, [facility] 4 07:44:07 Peripheral nerve disease 299079758 Active 2023 JEREMIE GOMEZ, [facility] 4 07:44:41 Postoperati ve hypothyroid ism 63916212 Active 2023 JEREMIE GOMEZ, [facility] 4 07:45:39 History of malignant neoplasm of thyroid 761719768 Active 2023 JEREMIE GOMEZ, [facility] 4 07:45:56 Hypothyroid ism 42066452 Active [address], [place], [address] [place] [address] 4 10:36:40 Wasp sting-induc ed anaphylaxis 869283623 Active [address], [place], [address], [facility], [facility] 4 11:08:53 Hidradeniti s suppurativa 89385817 Active [address], [place], [address], [facility] 4 12:44:40 Allergic rhinitis 34242597 Active 2023 GISSELL MORAN [address], [place], [address], [facility] 4 08:01:36 Hyperlipide amisha 48672298 Active [address], [place], [address], [facility] 08:33:34 Herpes labialis 3596110 Active 2023 GISSELL MORAN [address], [place], [address], [facility] 08:38:12 Pain of left knee joint 3675788995131 07 Active [address], [place], [address], [facility] 4 11:59:00 Pain of toe of left foot 8816586540673 08 Active [address], [place], [address], [facility] 4 12:02:26 wound disruption 060152575 Active 2023 CIRO CISNEROS PA-C [address], [place], [address], [facility] 4 16:04:50 Abdominal pain 26246666 Active 2023 GISSE[address]ORAN [address], [place], [address], [facility] 08:05:05 Insomnia 204815266 Active 2023 GISSE[address]OR[address], [place], [address], [facility] 12:06:00 Problem Notes None recorded. Procedures Surgical History Date Name Laterality Status Provider Name and Address Organization Details Recorded Time 06/13/20 24 Suture/Staple removal active GISSELL MORAN [address], [place], [address], [facility] 06/13/2024 14:11:35 04/08/20 19 colonoscopy completed MIN GARCIA MA [facility] 12/05/2023 07:47:38 10/09/19 18 extraction of cataract completed MIN GARCIA MA [facility] 12/05/2023 07:46:37 10/09/19 17 Carpal tunnel surgery completed MIN GARCIA MA [facility] 12/05/2023 07:46:22 10/09/19 17 anterior transposition of ulnar nerve completed MIN GARCIA MA [facility] 12/05/2023 07:48:48 10/09/19 13 Total knee arthroplasty completed MIN GARCIA MA [facility] 12/05/2023 07:48:18 10/09/19 10 colonoscopy completed MIN GARCIA MA [facility] 12/05/2023 07:47:28 10/09/19 06 Thyroid Surgery completed MIN GARCIA MA [facility] 12/05/2023 07:48:02 10/09/19 04 Thyroid Surgery completed MIN GARCIA MA [facility] 12/05/2023 07:47:57 10/09/18 90 Thyroid Surgery completed MIN GARCIA MA [facility] 12/05/2023 07:47:52 10/09/18 88 section completed MIN GARCIA MA [facility] 12/05/2023 07:47:05 10/09/18 85 section completed MIN GARCIA MA [facility] 12/05/2023 07:47:00 Imaging Results None recorded. Procedure Notes None recorded. Medical Equipment None Reported. Allergies Allergen ID Allergen Name Allergen Category Reaction Reaction Severity Criticality Documentation Date Start Date Code Code System Note Provider Name and Address Organization Details Recorded Time 26700 Substance with sulfonami de structure and antibacte rial mechanism of action (substanc e) medicatio n Not available Not available Not available 12/08/2023 06636 8003 [facility] 4 09:44:14 97301 Dilaudid medicatio n Not available Not available Not available 12/08/2023 71990 3 RxNorm [facility] 4 09:44:20 89676 morphine medicatio n Not available Not available Not available 12/08/2023 7052 RxNolillian [facility] 4 09:44:33 95790 acetamino phen / oxycodone medicatio n Not available Not available Not available 12/08/2023 28733 3 [facility]Norm [facility] 4 09:44:41 70662 oxycodone medicatio n Not available Not available Not available 12/08/2023 7804 RxNolillian [facility] 4 09:44:49 21092 atorvasta tin medicatio n Not available Not available Not available 12/08/2023 10143 RxNolillian [facility] 4 09:44:56 76862 guaifenes in medicatio n Not available Not available Not available 12/08/2023 5032 JEREMIE Malcolm, [facility] 4 09:45:07 08688 shellfish derived food,medi cation Not available Not available Not available 12/08/2023 JEREMIE GOMEZ, [facility] 4 09:45:21 31177 fish derived food,medi cation Not available Not available Not available 12/08/2023 MINREUBEN GARCIAJEREMIE, [facility] 4 09:45:29 63570 banana extract food,medi cation Not available Not available Not available 12/08/2023 29917 9 MookieJEREMIE Ford, [facility] 4 09:45:36 85279 nut - unspecifi ed food Not available Not available Not available 12/08/2023 MIN GARCIAJEREMIE, [facility] 4 09:45:48 53967 coconut extract food,medi cation Not available Not available Not available 12/08/2023 31878 48 MookieWin HILLCHELSEAJEREMIE, [facility] 4 09:45:57 28297 annalisa extract food Not available Not available Not available 12/08/2023 46111 32 Blanka PALOMINOVIE RADHAJEREMIE, [facility] 4 09:46:04 28594 kiwi fruit extract food Not available Not available Not available 12/08/2023 83613 01 Blanka GARCIAJEREMIE, [facility] 4 09:46:12 68021 pear preparati on food Not available Not available Not available 12/08/2023 20621 25 Blanka GARCIA JEREMIE nicole, [facility] 4 09:46:19 57703 peach food Not available Not available Not available 12/08/2023 MIN GARCIA MA bonnie, [facility] 4 09:46:27 61089 cultivate d mushroom extract food Not available Not available Not available 12/08/2023 55171 17 RxNorm JEREMIE GOMEZ, [place] - [facility]. 09:46:34 Medications Name Sig Start Date Stop Date Status Note LastModified by Organization Details LastModified Time tizanidine 4 mg tablet Take 1 tablet every day by oral route at bedtime. active Not Available Not Available No t Available cephalexin 250 mg tablet Take 1 tablet every 6 hours by oral route. 07/12 completed Not Available Not Available Not Available levothyroxi ne 100 mcg tablet Take 1 [...] capsule every 6 hours by oral route. 07/12 completed Not Available Not Available Not Available buspirone 10 mg tablet Take 1 tablet [...] propionate 50 mcg/actuati on nasal spray,suspe nsion [address] 1 spray every day by intranasa l [...] Updated DateTime 4 154.94 cm 31 kg/m2 35163.1 5 g 98.4 [degF] 97 % 97 % 74 /min 18 /min 144 mm[Hg] 78 mm[Hg] Daisy Becker [facility] 4 15:00:19 Social History Question Answer Notes LastModified by Organizat ion Details LastModified Time Tobacco Smoking Status Never Smoker MIN GARCIA MA null, [facility] 12/05/2023 10:56:38 Would You Say That, In [...] Of Your Most Recent Tobacco Screening? 06/19/2024 [email or web address] Information not available 06/19/2024 Has Tobacco Cessation Counseling Been Provided? Yes [email or web address] Information not available 06/19/2024 On What Date Was Tobacco Cessation Counseling Provided? 06/19/2024 [email or web address] Information not available 06/19/2024 Do You Or Have You Ever Used Any Other Forms Of Tobacco Or Nicotine? No Information not available 12/05/2023 Sex: Unknown Functional Status None recorded. Mental Status None recorded. Family History Nothing Reported. Medical History No medical history recorded. Gynecological HistoryNo gynecological history recorded. Obstetrics History GPAL:G 0 P 0 0 0 0 Immunizations Vaccine Type Date Status Provider Name and Address Organization Details Recorded Time Influenza, split virus, trivalent, PF 07/12/2024 completed GISSELL MORAN [address], [place], [address], [facility]. 07/12/2024 12:38:59 Past Encounters Encounter ID Performer Location Encounter Start Date Encounter Closed Date Diagnosis/Indication Diagnosis SNOMED-CT Code Diagnosis ICD10 Code [id number] Nora Reese [facility] [address] [place] [address] 06/13/2024 13:32:10 06/13/2024 14:00:51 Removal of suture 34015312 Z48.02 [id number] GISSELL RODRIGUEZ-Jose G [address] [place] [address] 06/19/2024 13:35:12 06/19/2024 15:59:04 wound disruption 383255916 O90.0 Health Concerns Section Related Observation LastModified by Organization Detai ls LastModified Time None Recorded Concern Status LastModified by Organization Details LastModified Time None Recorded Payers Encounter Date Sequence Insurance Name Policy Number Policy Chanel Covered Member ID Chanel Member ID Guarantor Name 06/19/2024 1 [facility] (MEDICARE REPLACEMENT HMO) [id number] Madina Castrejon [id number] Madina Castrejon Notes Date Note Type Note [...] symptoms. CIRO CISNEROS PA-C [address], [place], [address], [facility]. 06/19/2024 16:06:41 OBGyn Episode No OBEpisode recorded.
[2024-07-12 16:21] LABS: T4 9.8 ug/dL (4.7-13.3); TSH 1.95 uIU/Ml (0.36-3.74)
== END 2024-07-12 15:53 | disposition home or self-care (01) ==
LOC: NCHCN 15:52
PROVIDERS: PCP Student in an Organized Health Care Education/Training Program; Visit Provider Student in an Organized Health Care Education/Training Program
DX: E03.9 Hypothyroidism, unspecified (principal)
CPT/HCPCS: 84436; 84443

== ENCOUNTER 2024-07-25 11:30 | Outpatient (CLI) | payer MEDICARE, SELFPAY ==
--- NOTE | 2024-07-25 09:30 | DI.RAD_ITS ---
Exam(s) XR KNEE LT 4V AP,LAT,MAK,PAT EXAM: XR KNEE LT 4V AP,LAT,MAK,PAT CLINICAL HISTORY: left knee pain. TECHNIQUE: 2D digital imaging was performed. Four images were obtained. AP, lateral and oblique vie ws were obtained. COMPARISON: No exams were available for comparison FINDINGS: BONES: The patient has a left total knee replacement. No fracture or dislocation. JOINTS: The orthopedic hardware is in good position. No evidence of hardware loosening. There is a small joint effusion. SOFT TISSUE: Normal. IMPRESSION: Left total knee replacement. DATA REPOSITORY: RADIATION DOSE DELIVERED:
== END 2024-07-25 11:31 | disposition home or self-care (01) ==
LOC: DIORS 11:30
PROVIDERS: PCP Student in an Organized Health Care Education/Training Program; Referring Provider Student in an Organized Health Care Education/Training Program; Visit Provider Student in an Organized Health Care Education/Training Program
DX: Z96.652 Presence of left artificial knee joint (principal)
CPT/HCPCS: 73564

== ENCOUNTER 2024-09-23 15:26 | Outpatient (CLI) | payer MEDICARE, SELFPAY ==
--- NOTE | 2024-09-23 15:15 | DI.RAD_ITS ---
Exam(s) XR KNEE RT 3V AP,LAT,MAK EXAM: XR KNEE RT 3V AP,LAT,MAK CLINICAL HISTORY: PAIN RT KNEE M25.561 HX TKR LEFT SIDE, ? ARTHRITIS. TECHNIQUE: 2D digital imaging was performed. COMPARISON: CR XR KNEE LT 4V AP,LAT,MAK,PAT from 07/25/2024 FINDINGS: 3 views No evidence of fracture but there does appear to be a joint effusion in suprapatellar bursa. There is no significant joint space narrowing. No osteophytes. Bone density normal. No significant osseous lesions. There is some swelling and abnormal density in the soft tissues off the medial aspect of the knee. N o abnormal calcifications at this level. No radiopaque foreign bodies. IMPRESSION: Findings as above. There is also a joint effusion noted. No degenerative changes. DATA REPOSITORY: RADIATION DOSE DELIVERED:
--- OUTSIDE RECORDS SUMMARY | 2024-09-23 15:27 | XMS_ITS | Encounter Summary ---
Author Organization [facility] [place] [address] Care Team Providers Care Continuous Process Tanner Rotary Drum Name Role Phone Xavier Viveros Primary Care Provider + Encounter Details Date Type Department Care Team (Latest Contact Info) Description 08/27/2024 Travel Social History Tobacco Use Types Packs/Day Years Used Date Smoking Tobacco: Never Smokeless Tobacco: Never Sex and Gender Information Value Date Recorded Sex Assigned at Not on file Gender Identity Not on file Sexual Orientation Not on file documented as of this encounter Plan of Treatment Not on file documented as of this encounter Visit Diagnoses Not on filedocumented in this encounter Care Teams Continuous Process Tanner Rotary Drum Relationship Specialty Start Date End Date [place] [address] PCP - General Internal Medicine 04/01/24 documented as of this encounter
--- OUTSIDE RECORDS SUMMARY | 2024-09-23 15:27 | XMS_ITS | Encounter Summary ---
Author Organization [facility] [place] [address] Care Team Providers Care Steel Die Press Set Up Operator Name Role Phone Xavier Viveros Primary Care Provider + Encounter Details Date Type Department Care Team (Late st Contact Info) Description 06/09/2024 [facility] Ref[facility] [phone] Xavier Viveros PA [address] [place] [address] Social History Tobacco Use Types Packs/Day Years Used Date Smoking Tobacco: Never Assessed Sex and Gender Information Value Date Recorded Sex Assigned at Not on file Gender Identity Not on file Sexual Orientation Not on file documented as of this encounter Plan of Treatment Not on file documented as of this encounter Visit Diagnoses Not on filedocumented in this encounter Care Teams Steel Die Press Set Up Operator Relationship Specialty Start Date End Date Xavier Viveros PA [address] [place] [address] PCP - General Internal Medicine 04/01/24 documented as of this encounter
--- OUTSIDE RECORDS SUMMARY | 2024-09-23 15:27 | XMS_ITS | Encounter Summary ---
Author Organization Formerly [facility], [facility] Address [facility] [place] [address] Care Team Providers Care Endless Track Vehicle Supervisor Name Role Phone Xavier Viveros Primary Care Provider + Encounter Details Date Type Department Care Team (Late st Contact Info) Description 06/04/2024 10:30 AM EDT Office Visit Dermatology at [facility] [address] [place] [address] Roxi Ruiz MD [facility] DR [address]ES[address] [place] [address] Skin tag; SK (seborrheic keratosis) Social History [...] the clinic today. #. Seborrheic Keratoses - [place]-brown papules/plaques with waxy, stuck-on appearance scattered on [...] clinic today. RTC: PRN []Note routed to assistant corporate secretary []Recall placed in scheduling system []Appointment scheduled at checkout Scribe attestation: JANET Qiu has performed the documentation for this encounter in the presence of and acting as a scribe for Roxi Ruiz MD. I performed the above scribed service and agree with the accuracy of the documentation in this encounter. Reviewed and signed by: Roxi Ruiz MD Dermatology [facility] documented in this encounter Plan of Treatment Not on file documented as of this encounter Visit Diagnoses Diagnosis Skin tag Unspecified hypertrophic and atrophic condition of skin SK (seborrheic keratosis) Other seborrheic keratosis documented in this encounter Care Teams Endless Track Vehicle Supervisor Relationship Specialty Start Date End Date Xavier Viveros PA [address] [place] [address] PCP - General Internal Medicine 04/01/24 documented as of this encounter
--- OUTSIDE RECORDS SUMMARY | 2024-09-23 15:27 | XMS_ITS | Clinical Summary ---
Author Organization [facility] [place] [address] Care Team Providers Care Meat Stocker Name Role Phone Xavier Viveros Primary Care Provider + Allergies Active Allergy Reactions Criticality Noted Date Comments Atorvastatin 06/04/2024 Banana Anaphylaxis High 06/04/2024 Coconut Anaphylaxis High 06/04/2024 Codeine 06/04/2024 Meperidine 06/04/2024 Hydromorphone 06/04/2024 Fish Containing Products 06/04/2024 Guaifenesin 06/04/2024 Nose bleeds Kiwi (Actinidia Chinensis) Botkins 06/04/2024 Mushroom 06/04/2024 Opioids - Morphine Analogues 024 Oxycodone 06/04/2024 Stone Fruit 06/04/2024 Pears 06/04/2024 Oxycodone-Acetaminophen 06/04/2024 Shellfish Containing Products 2023 Sulfa (Sulfonamide Antibiotics) 05/10 Ketorolac 06/04/2024 Tree Nuts 06/04/2024 Medications Medication Sig Dispensed Refills Start Date End Date Status levothyroxine (Synthroid) 100 mcg tablet Take 100 mcg by mouth daily. Except for Monday Active DULoxetine DR (Cymbalta) [address] capsule Take 60 mg by mouth daily. Active tiZANidine (Zanaflex) 4 mg tablet Take 4 mg by mouth every 6 hours as needed. Active busPIRone (Buspar) 10 mg tablet Take 10 mg by mouth daily. Active gabapentin (Neurontin) 800 mg tablet Take 800 mg by mouth 3 times daily. Active fluticasone propionate-salmetero L (Advair Diskus) 250-50 mcg/dose inhaler (DPI) Inhale 1 puff into the lungs 2 times daily. Active albuteroL (ACCUNEB) 1.25 mg/3 mL Solution for Nebulization Take 1 ampule by nebulization every 6 hours as needed for Wheezing. Active famciclovir (Famvir) 500 mg tablet Take 500 mg by mouth as needed. Active Active Problems No known active problems Encounters Date Type Department Care Team Description 08/27/2024 9:55 AM EST Laboratory Appointment Lab [address] [place] [address] Hypothyroidism, unspecified type; History of thyroid cancer 08/27/2024 8:30 AM EST Office [place] [address] Taras Thompson MD History of thyroid cancer; Hypothyroidism, unspecified type 08/27/2024 Travel from Last 3 Months Social History Tobacco Use Types Packs/Day Years Used Date Smoking Tobacco: Never Smokeless Tobacco: Never Tobacco Cessation:Counseling Given: Not Answered Sex and Gender Information Value Date Recorded Sex Assigned at Not on file Gender Identity Not on file Sexual Orientation Not on file Last Filed Vital Signs Vital Sign Reading Time Taken Comments Blood Pressure 119/53 08/27/2024 7:46 AM EST Pulse 88 08/27/2024 7:46 AM EST Temperature 36.7 ??C (98.1 ??F) 08/27/2024 7:46 AM ES T Respiratory Rate 17 08/27/2024 7:46 AM EST Oxygen Saturation 95% 08/27/2024 7:46 AM EST Inhaled Oxygen Concentration - - Weight 75.3 kg (166 lb) 08/27/2024 7:46 AM EST Height 157.5 cm (5' 2) 08/27/2024 7:46 AM EST Body Mass Index 30.36 08/27/2024 7:46 AM EST Plan of Treatment Health Maintenance Due Date Last Done Comments CT Colonography 1959 Colonoscopy 1959 Colorectal Cancer Screening 1959 FIT DNA 1959 FIT 1959 Sigmoidoscopy (10 year) with FIT yearly 1959 Sigmoidoscopy 1959 HIV screen 1977 Hepatitis C Screening 1977 Lipid Screening 1977 Tetanus/Diphtheria/Pertussis Vaccines (1 - Tdap) 09/21 HPV test 1989 PAP Smear 1989 Breast Cancer Share Decision Needed 1999 Breast Cancer screening 1999 Diabetes Screening (HgbA1C or Glucose) 1999 Zoster vaccine (1 of 2) 2009 Advance Directive 2014 Covid-19 Vaccine ( - season) 2024 Influenza (Flu) vaccine (1 o f 1 - Influenza standard series) 06/09/2024 Procedures Procedure Name Priority Date/Time Associated Diagnosis Comments THYROGLOBULIN (BILL ONLY) Routine 08/27/2024 9:31 AM EST History of thyroid cancer THYROGLOBULIN Routine 08/27/2024 9:31 AM EST History of thyroid cancer TSH Routine 08/27/2024 9:31 AM EST Hypothyroidism, unspecified type from Last 3 Months Results * Thyroglobulin (Bill Only) (08/27/2024 9:31 AM EST) Thyroglobulin (Bill Only) (ARU) Billed 08/29/2024 2:00 AM EST REF [facility] Comment: Performed By: [facility] [address] [place] [address] Agency Sales Director: Xavier Salvador MD, PhD CLIA Number: [id number] Blood VENOUS BLOOD SPECIMEN / Unknown Venipuncture / Unknown 08/27/2024 9:31 AM EST 08/27/2024 9:31 AM EST Taras Thompson MD LAB SEND OUT GAMALIELA BLES REF [facility] [address] * (ABNORMAL) Thyroglobulin (08/27/2024 9:31 AM EST) Thyroglobulin Antibody (ARU) <0.9 0.0 - 4.0 IU/mL 08/29/2024 2:00 AM EST REF [facility] Comment: INTERPRETIVE INFORMATION: Thyroglobulin Antibody ? A value of 4.0 IU/mL or less indicates a negative result for thyroglobulin antibodies. The Thyroglobulin Antibody assay is being performed using the Leonie Willoughby Access DxI method. Thyroglobulin (ARU) 0.5(L) 1.3 - 31.8 ng/mL 08/29/2024 2:00 AM EST REF LAB [facility] Comment: INTERPRETIVE INFORMATION: Thyroglobulin, Serum or Plasma Specimens negative for thyroglobulin antibodies (TgAb) are tested for thyroglobulin (Tg) by chemiluminescent immunoassay (BERKLEY) using the Leonie Willoughby Access DxI method. Specimens with TgAb results above the upper reference limit are tested for Tg by high-performance liquid chromatography-tandem mass spectrometry (LC-MS/MS). Results obtained with different test methods or kits cannot be used interchangeably. Tg results, regardless of concentration, should not be interpreted as absolute evidence for the presence or absence of papillary or follicular thyroid cancer. Tg testing is not recommended for use as a screening procedure to detect the presence of thyroid cancer in the general population. Thyroglobulin by LC-MS/MS (ARU) Not Applicable 1.3 - 31.8 ng/mL 08/29/2024 2:00 AM EST REF LAB [facility] Comment: INTERPRETIVE INFORMATION: Thyroglobulin by LC-MS/MS, Serum/Plasma Lower limit of detection for Thyroglobulin by LC-MS/MS is 0.5 ng/mL. This test was developed and its performance characteristics determined by [facility]. It has not been cleared or approved by the US Food and Drug Administration. This test was performed in a CLIA certified laboratory and is intended for clinical purposes. Performed By: [facility] [address] [place] [id number] Agency Sales Director: Xavier Salvador MD, PhD CLIA Number: [id number] Blood VENOUS BLOOD SPECIMEN / Unknown Venipuncture / Unknown 08/27/2024 9:31 AM EST 08/27/2024 9:31 AM EST Taras Thompson MD LAB SEND OUT ORDERA BLES REF [facility] [address] [place], [place] [address] * TSH (08/27/2024 9:31 AM EST) Thyroid Stimulating Hormone 1.68 0.27 - 4.20 mcIU/mL 08/27/2024 10:30 AM EST [facility] Comment: Reference Interval (mcIU/mL): ?? Females: ? First Trimester: 0.23-3.88 ? Second Trimester: 0.22-3.90 ? Third Trimester: 0.44-4.66 Blood VENOUS BLOOD SPECIMEN / Unknown Venipuncture / Unknown 08/27/2024 9:31 AM EST 08/27/2024 9:31 AM EST Taras Thompson MD CHEMISTRY ORDERABLE S Performing Organization Address City/State/[facility] Co de Phone Number [facility] [place] [address] from Last 3 Months Care Teams Meat Stocker Relationship Specialty Start Date End Date Xavier Viveros [place] [address] PCP - General Internal Medicine 04/01/24
--- OUTSIDE RECORDS SUMMARY | 2024-09-23 15:27 | XMS_ITS | Encounter Summary ---
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 SHE THEN HAS RECURRENCE OF GROWTH AND THEN WENT TO [facility] WHICH THEY THEN DID RADIATION ABLATION. PT [...] MGMT OF THYROID CARE. Xavier Viveros PA [address] [place] [address] [place] [address] [facility] [address] [place] [id number] Referral ID Status Reason Start Date Expiration Date Visits Requested Visits Authorized [id number] Authorized Consult, Test & Treat PCP Updated and/or Approved 05/23/2024 05/23/2025 6 6 Encounter Details Date Type Department Care Team (Jerardo st Contact Info) Description 08/27/2024 8:30 AM EST Office [place] [address] Taras Thompson MD [facility] [place] [address] History of thyroid cancer; Hypothyroidism, unspecified type Social History Tobacco Use Types Packs/Day Years Used Date Smoking Tobacco: Never Smokeless Tobacco: Never Tobacco Cessation:Counseling Given: Not Answered Sex and Gender Information Value Date Recorded Sex Assigned at Not on file Gender Identity Not on file Sexual Orientation Not on file documented as of this encounter Last Filed Vital Signs Vital Sign Reading [...] Mass Index 30.36 08/27/2024 7:46 AM EST documented in this encounter Patient Instructions * Patient Instructions* Taras Thompson MD - 08/27/2024 8:30 AM EST Labs today at 3L We will request records from [facility] and Dr Kennedy's office. If the thyroglobulin is fairly stable and low over the last few years, we will transition your monitoring back to Xavier Viveros to have the TSH and Thyroglobulin yearly, with re-referral to our office if the thyroglobulin rises documented in this encounter Progress Notes * Taras Thompson MD - 08/27/2024 8:30 AM EST Ms. Madina Castrejon is an 63 y.o. 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 She then had two subsequent lymph node dissections (it appears to be likely 2003 and 2005) for recurrence that were done at [facility] when she moved to [place] She was reportedly told she had several mildly abnormal left sided lymph nodes that have been actively monitored over the last few years by her floor polisher in [facility] Dr Kennedy. The patient believes her Thyroglobulin has been detectable at a low level for many years now, the last value she can recall she believes was 0.9 She denies any history of recurrent laryngeal nerve injury or hypoparathyroidism after thyroidectomy She takes generic levothyroxine 100 mcg daily except skips on Sundays, no recent dose change There is no history of heart disease or osteoporosis Past Medical History: Diagnosis Date Anxiety Asthma Fibromyalgia Postoperative hypothyroidism Thyroid cancer Past Surgical History: Procedure Laterality Date ANTERIOR CRUCIATE LIGAMENT REPAIR CARPAL TUNNEL RELEASE SECTION ELBOW SURGERY JOINT REPLACEMENT LYMPH NODE DISSECTION SHOULDER SURGERY THYROIDECTOMY Social History Socioeconomic History Marital status: Unknown Spouse name: Not on file Number of children: Not on file Years of education: Not on file Highest education level: Not on file Occupational History Not on file Tobacco Use Smoking status: Not on file Smokeless tobacco: Not on file Substance and Sexual Activity Alcohol use: Not on file Drug use: Not on file Sexual activity: Not on file Other Topics Concern Not on file Social History Narrative Not on file Social Determinants of Health Financial Resource Strain: Not on file Food Insecurity: Not on file Transportation Needs: Not on file Physical Activity: Not on file Intimate Partner Violence: Not on file Housing Stability: Not on file History reviewed. No pertinent family history. Review of Systems: As described above, otherwise it is negative Current Outpatient Medications: levothyroxine (Synthroid) 100 mcg tablet, Take 100 mcg by mouth daily. Except for Monday, Disp: , Rfl: DULoxetine DR (Cymbalta) [address] capsule, Take 60 mg by mouth daily., Disp: , Rfl: tiZANidine (Zanaflex) 4 mg tablet, Take 4 mg by mouth every 6 hours as needed., Disp: , Rfl: busPIRone (Buspar) 10 mg tablet, Take 10 mg by mouth daily., Disp: , Rfl: gabapentin (Neurontin) 800 mg tablet, Take 800 mg by mouth 3 times daily., Disp: , Rfl: fluticasone propionate-salmeteroL (Advair Diskus) 250-50 mcg/dose inhaler (DPI), Inhale 1 puff intothe lungs 2 times daily., Disp: , Rfl: albuteroL (ACCUNEB) 1.25 mg/3 mL Solution for Nebulization, Take 1 ampule by nebulization every 6 hours as needed for Wheezing., Disp: , Rfl: famciclovir (Famvir) 500 mg tablet, Take 500 mg by mouth as needed., Disp: , Rfl: Allergies Allergen Reactions Banana Anaphylaxis Coconut Anaphylaxis Atorvastatin Codeine Demerol [Meperidine] Dilaudid [Hydromorphone] Fish Containing Products Guaifenesin Nose bleeds Kiwi (Actinidia Chinensis) Jose A Mushroom Opioids - Morphine Analogues Oxycodone Peaches [Stone Fruit] Pears Percocet [Oxycodone-Acetaminophen] Shellfish Containing Products Sulfa (Sulfonamide Antibiotics) Toradol [Ketorolac] Tree Nuts Physical Exam: Patient Vitals for the past 24 hrs: Temp Pulse Resp BP SpO2 08/27/24 0746 36.7 ??C (98.1 ??F) 88 17 119/53 95 % General: NAD, sitting comfortably Face: not round or red Eyes: no lid lag; normal eye movements Nose/mouth: Nose not enlarged, mucous membranes moist Neck: no supraclavicular fat pads; no palpable neck masses Lymphatic: no palpable cervical lymph nodes Respiratory: symmetrical chest expansion, breathing comfortably on room air without audible wheeze or stridor Musculoskeletal: moving all 4 extremities normally. normal female musculature Skin: normal temperature/texture, no jaundice or pallor, no lower extremity edema, well healed necksurgical scars Neurological: no tremors, normal gait Psychological: alert/oriented to person, place, time; normal affect; memory intact; normal judgement/insight Radiology Studies: Laboratory Data: Assessment / Plan: 1) history of thyroid cancer (from report it was mixed papillary/follicular Status post three neck surgeries and I-131 ablation x2 Reportedly has had detectable thyroglobulin for many years after last surgery No concerning findings seen on in office US done today Will request records from [facility] and [place] floor polisher's office to better understandprior pathologies from surgeries and also recent Thyroglobulin (Tg) trend Check serum thyroglobulin/Tg antibodies today and will compare with recent values from [place] 2) postoperative hypothyroidism Unless Tg is well over 2 I think TSH goal range should be normal up to 2.0 but will re-assess basedon Tg and trend in this value Consider levothyroxine dose adjustment if needed A note will be sent to the referring provider Orders Placed This Encounter Procedures TSH Thyroglobulin Return to clinic to be determined. If Thyroglobulin is found to be low and stable compared with other values over the last 5 years she could safely be followed up by primary care with Thyroglobulin testing every 1-2 years and TSH testing yearly, with re-referral to endocrinology if Thyroglobulin level rises It was a pleasure to be involved in the care of Madina Castrejon. If you have any questions about the management and treatment plan as outlined above, or if I can be of further assistance, please do not hesitate to contact me. Sincerely, Taras Thompson MD Fine Wire Drawerinfantry unit leader Endocrinology Section [facility] * Taras Thompson MD - 08/27/2024 8:30 AM EST ENDOCRINOLOGY THYROID ULTRASOUND REPORT Patient:Madina Castrejon, [id number] Date of exam: 08/27/2024 Indication: history of thyroid cancer Comparison: none prior in our system Performed by: Taras Thompson MD Real time images of the thyroid gland were obtained and saved using a [employer] US machine. All measurements are given as Longitudinal/Sagittal x AP x Transverse. Right Neck: Thyroid is surgically absent No abnormal lymph nodes Left Neck: Thyroid is surgically absent There is a prominent but overall morphologically normal left level 4 lymph node measuring [id number].It appears to have thin cortex and fatty hilum Impression: No evidence of thyroid cancer recurrence documented in this encounter Plan of Treatment Not on file documented as of this encounter Results * (ABNORMAL) Thyroglobulin (08/27/2024 9:31 AM EST) Thyroglobulin Antibody (ARU) <0.9 0.0 - 4.0 IU/mL 08/29/2024 2:00 AM EST REF [facility] Comment: INTERPRETIVE INFORMATION: Thyroglobulin Antibody ? A value of 4.0 IU/mL or less indicates a negative result for thyroglobulin antibodies. The Thyroglobulin Antibody assay is being performed using the Leonie Chadwicks Access DxI method. Thyroglobulin (ARU) 0.5(L) 1.3 - 31.8 ng/mL 08/29/2024 2:00 AM EST REF LAB [facility] Comment: INTERPRETIVE INFORMATION: Thyroglobulin, Serum or Plasma Specimens negative for thyroglobulin antibodies (TgAb) are tested for thyroglobulin (Tg) by chemiluminescent immunoassay (BERKLEY) using the Leonie Marina Access DxI method. Specimens with TgAb results [...] ng/mL 08/29/2024 2:00 AM EST REF LAB [facility] Comment: INTERPRETIVE INFORMATION: Thyroglobulin by LC-MS/MS, Serum/Plasma Lower limit of detection for Thyroglobulin by LC-MS/MS is 0.5 ng/mL. This test was developed and its performance characteristics determined by [facility]. It has not been cleared or approved by the US Food and Drug Administration. This test was performed in a CLIA certified laboratory and is intended for clinical purposes. Performed By: [facility] [address] [place] [address] Clinical Dietetic Technician: Xavier Salvador MD, PhD CLIA Number: [id number] Blood VENOUS BLOOD SPECIMEN / Unknown Venipuncture / Unknown 08/27/2024 9:31 AM EST 08/27/2024 9:31 AM EST Taras Thompson MD LAB SEND OUT ORDERA BLES REF LAB [address] * TSH (08/27/2024 9:31 AM EST) Thyroid Stimulating Hormone 1.68 0.27 - 4.20 mcIU/mL 08/27/2024 10:[address] [facility] Comment: Reference Interval (mcIU/mL): ?? Females: ? First Trimester: 0.23-3.88 ? Second Trimester: 0.22-3.90 ? Third Trimester: 0.44-4.66 Blood VENOUS BLOOD SPECIMEN / Unknown Venipuncture / Unknown 08/27/2024 9:31 AM EST 08/27/2024 9:31 AM EST Taras Thompson MD CHEMISTRY ORDERABLE S [facility] [place] [address] documented in this encounter Visit Diagnoses Diagnosis History of thyroid cancer Personal history of malignant neoplasm of thyroid Hypothyroidism, unspecified type documented in this encounter Care Teams Web Site Specialist Relationship Specialty Start Date End Date Xavier Viveros PA [address] [facility] [place] [address] PCP - General Internal Medicine 04/01/24 documented as of this encounter
--- OUTSIDE RECORDS SUMMARY | 2024-09-23 15:27 | XMS_ITS | Encounter Summary ---
[place] [address] Care Team Providers Care Field Marketing Associate Name Role Phone Xavier Viveros Primary Care Provider + Encounter Details Date Type Department Care Team (Latest Contact Info) Description 08/27/2024 9:55 AM EST Laboratory Appointment Lab [address] [place] [phone] Hypothyroidism, unspecified type; History of thyroid cancer Social History Tobacco Use Types Packs/Day Years Used Date Smoking Tobacco: Never Smokeless Tobacco: Never Sex and Gender Information Value Date Recorded Sex Assigned at Not on file Gender Identity Not on file Sexual Orientation Not on file documented as of this encounter Plan of Treatment Not on file documented as of this encounter Procedures Procedure Name Priority Date/Time Associated Diagnosis Comments THYROGLOBULIN (BILL ONLY) Routine 08/27/2024 9:31 AM EST History of thyroid cancer THYROGLOBULIN Routine 08/27/2024 9:31 AM EST History of thyroid cancer TSH Routine 08/27/2024 9:31 AM EST Hypothyroidism, unspecified type documented in this encounter Results * Thyroglobulin (Bill Only) (08/27/2024 9:31 AM EST) Thyroglobulin (Bill Only) (ARU) Billed 08/29/2024 2:00 AM EST REF [facility] Comment: Performed By: [facility] [address] [place] [id number] Private Duty Aide: Xavier Salvador MD, PhD CLIA Number: [id number] Blood VENOUS BLOOD SPECIMEN / Unknown Venipuncture / Unknown 08/27/2024 9:31 AM EST 08/27/2024 9:31 AM EST Taras Thompson MD LAB SEND OUT ESPERANZA ZHENG REF [facility] [address] [place], [place] [address] * (ABNORMAL) Thyroglobulin (08/27/2024 9:31 AM EST) Thyroglobulin Antibody (ARU) <0.9 0.0 - 4.0 IU/mL 08/29/2024 2:00 AM EST REF [facility] Comment: INTERPRETIVE INFORMATION: Thyroglobulin Antibody ? A value of 4.0 IU/mL or less indicates a negative result for thyroglobulin antibodies. The Thyroglobulin Antibody assay is being performed using the Leonie Marina Access DxI method. Thyroglobulin (ARU) 0.5(L) 1.3 - 31.8 ng/mL 08/29/2024 2:00 AM EST REF [facility] Comment: INTERPRETIVE INFORMATION: Thyroglobulin, Serum or Plasma Specimens negative for thyroglobulin antibodies (TgAb) are tested for thyroglobulin (Tg) by chemiluminescent immunoassay (BERKLEY) using the Leonie [place] Access DxI method. Specimens with TgAb results [...] ng/mL 08/29/2024 2:00 AM EST REF [facility] Comment: INTERPRETIVE INFORMATION: Thyroglobulin by LC-MS/MS, Serum/Plasma Lower limit of detection for Thyroglobulin by LC-MS/MS is 0.5 ng/mL. This test was developed and its performance characteristics determined by [facility]. It has not been cleared or approved by the US Food and Drug Administration. This test was performed in a CLIA certified laboratory and is intended for clinical purposes. Performed By: [facility] [address] [place] [address] Private Duty Aide: Xavier Salvador MD, PhD CLIA Number: [id number] Blood VENOUS BLOOD SPECIMEN / Unknown Venipuncture / Unknown 08/27/2024 9:31 AM EST 08/27/2024 9:31 AM EST Taras Thompson MD LAB SEND OUT ORDERA BLES Performing Organization Address City/[facility] Co de Phone Number REF LAB [facility] [address] [place] [address], [facility] * TSH (08/27/2024 9:31 AM EST) Thyroid Stimulating Hormone 1.68 0.27 - 4.20 mcIU/mL 08/27/2024 10:30 AM EST [facility] Comment: Reference Interval (mcIU/mL): ?? Females: ? First Trimester: 0.23-3.88 ? Second Trimester: 0.22-3.90 ? Third Trimester: 0.44-4.66 Blood VENOUS BLOOD SPECIMEN / Unknown Venipuncture / Unknown 08/27/2024 9:31 AM EST 08/27/2024 9:31 AM EST Taras Thompson MD CHEMISTRY ORDERABLE S Performing Organization Address City/[facility]/ZIP Co de Phone Number [facility] [place] [address] documented in this encounter Visit Diagnoses Diagnosis Hypothyroidism, unspecified type History of thyroid cancer Personal history of malignant neoplasm of thyroid documented in this encounter Care Teams Field Marketing Associate Relationship Specialty Start Date End Date Xavier [place] [address] [place] [address] PCP - General Internal Medicine 04/01/24 documented as of this encounter
--- OUTSIDE RECORDS SUMMARY | 2024-09-23 15:27 | XMS_ITS | Encounter Summary ---
Author Organization [facility] [place] [address] Care Team Providers Care Program Management Intern Name Role Phone Xavier Viveros Primary Care Provider + Reason for Visit * Consultation (Priority 3) - Closed Specialty Diagnoses / Procedures Referred By Terrence covarrubias Referred To Contact Dermatology Diagnoses Hidradenitis suppurativa SEBACEOUS CYST ON LOW BACK. Xavier Viveros PA [facility] [place] [address] [facility] D[facility] [address] [place] [address] Referral ID Status Reason Start Date Expiration Date V isits Requested Visits Authorized [id number] Closed Consult, Test & Treat PCP Updated and/or Approved 03/20/2024 09/19/2024 6 6 Encounter Details Date Type Department Care Team (Late st Contact Info) Description 06/04/2024 11:00 AM EDT Office Visit Dermatology at [facility] [address] [place] [id number] Roxi Ruiz MD [facility] [address] [place] [address] Neoplasm of unspecified behavior of bone, soft [...] // sooner as needed []Note routed to payroll secretary [x]Recall placed in scheduling system []Appointment scheduled at checkout Scribe attestation: JANET Qiu has performed the documentation for this encounter in the presence of and acting as a scribe for Roxi Ruiz MD. I performed the above scribed service and agree with the accuracy of the documentation in this encounter. Reviewed and signed by: Roxi Ruiz MD Dermatology [facility] * Roxi Ruiz MD - 06/04/2024 11:00 AM EDT Final Diagnosis A. Back, Lower Right, Punch biopsy: Epidermal inclusion cyst Reviewed benign result of cyst, no further treatment is needed. Verenice, can you please let Madina know? documented [...] Case Report Surgical Pathology Report ? Case: [id number] ? Authorizing Provider: ??Roxi Ruiz MD ? Collected: ? 06/04/2024 1103 ? Ordering Location: ? Dermatology at [facility] Received: ?06/04/2024 1153 ? Pathologist: ? Arturo Trinidad MD ? Specimen: ?Back, Lower Right ? 06/06/2024 11:41 AM EDT [facility] Final Diagnosis A. Back, Lower Right, Punch biopsy: Epidermal inclusion cyst 06/06/2024 11:41 AM EDT [facility] Clinical Information A. EIC - 4mm cystic nodule on the right lower back 06/06/2024 11:41 AM EDT [facility] Gross Description A. Back, Lower [...] cassette labeled A1. 06/06/2024 11:41 AM EDT [facility] Result Note Routine 06/06/2024 11:41 AM EDT [facility] Skin SKIN STRUCTURE OF LOWER BACK / Unknown Non Blood Collection / Unknown 06/04/2024 11:03 AM EDT 06/04/2024 11:53 AM EDT Roxi Ruiz MD PATHOLOGY/CYTOLOGY ORDERABLES [facility] [place] [place] [address] documented in this encounter Visit Diagnoses Diagnosis Neoplasm of unspecified behavior of bone, soft tissue, and skin Sebaceous hyperplasia Other specified disease of sebaceous glands Melanocytic nevus, unspecified location Greene angioma Nevus, non-neoplastic SK (seborrheic keratosis) Other seborrheic keratosis Solar lentigo Other dyschromia documented in this encounter Care Teams Program Management Intern Relationship Specialty Start Date End Date Xavier Viveros PA [address] [place] [place] [address] PCP - General Internal Medicine 04/01/24 documented as of this encounter
--- OUTSIDE RECORDS SUMMARY | 2024-09-23 15:27 | XMS_ITS | Encounter Summary ---
Author Organization [facility] [place] [address] Care Team Providers Care Data Entry Associate Name Role Phone Xavier Viveros Primary [...] on filedocumented in this encounter Care Teams Data Entry Associate Relationship Specialty Start Date End Date [place] [address] [address] PCP - General Internal Medicine 04/01/24 documented as of this encounter
--- OUTSIDE RECORDS SUMMARY | 2024-09-23 15:27 | XMS_ITS | Encounter Summary ---
Author Organization [facility] [place] [address] Care Team Providers Care Cocktail Lounge Manager Name Role Phone Xavier Viveros Primary Care Provider + Reason for Referral * Consultation (Priority 3) - Closed Specialty Diagnoses / Procedures Referred By Terrence t Referred To Contact Dermatology Diagnoses Hidradenitis suppurativa SEBACEOUS CYST ON LOW BACK. Xavier Viveros PA [address] [place] [address] [facility] Dermatology [address] [place] [address] Referral ID Status Reason Start Date Expiration Date V isits Requested Visits Authorized [id number] Closed Consult, Test & Treat PCP Updated and/or Approved 03/20/2024 09/19/2024 6 6 Encounter Details Date Type Department Care Team (Late st Contact Info) Description 04/01/2024 Transcribe Orders eDH Incoming Referrals [phone] Xavier Viveros PA [address] [place] [address] Hidradenitis suppurativa Social History Tobacco Use Types Packs/Day Years Used Date Smoking Tobacco: Never Assessed Sex and Gender Information Value Date Recorded Sex Assigned at Not on file Gender Identity Not on file Sexual Orientation Not on file documented as of this encounter Plan of Treatment Scheduled Referrals Name Type Priority Associated Diagnoses Orde r Schedule Referral to Dermatology Outpatient Referral Routine Hidradenitis suppurativa Ordered: 04/01/2024 documented as of this encounter Visit Diagnoses Diagnosis Hidradenitis suppurativa Hidradenitis documented in this encounter Care Teams Cocktail Lounge Manager Relationship Specialty Start Date End Date Xavier Viveros PA [facility] [place] [address] PCP - General Internal Medicine 04/01/24 documented as of this encounter
--- OUTSIDE RECORDS SUMMARY | 2024-09-23 15:27 | XMS_ITS | Encounter Summary ---
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 SHE THEN HAS RECURRENCE OF GROWTH AND [place] [facility] [place] THEN DID RADIATION ABLATION. PT [...] Xavier Viveros PA [address] [place] [address] [facility] [place] [place] Endocrinology [address] [place] [id number] Referral ID Status Reason Start Date Expiration Date Visits Requested Visits Authorized [id number] Authorized Consult, Test & Treat PCP Updated and/or Approved 05/23/2024 05/23/2025 6 6 Encounter Details Date Type Department Care Team (Late st Contact Info) Description 06/09/2024 Transcribe Orders eDH Incoming Referrals [phone] Xavier Viveros PA [address] [place] [address] Personal history of malignant neoplasm of thyroid [...] thyroid documented in this encounter Care Teams Plastic Battery Assembler Relationship Specialty Start Date End Date Xavier Viveros PA [address] [place] [address] PCP - General Internal Medicine 04/01/24 documented as of this encounter
--- OUTSIDE RECORDS SUMMARY | 2024-09-23 15:28 | XMS_ITS | Continuity of Care Document ---
Author Organization [facility] [place] [address] Care Team Providers Care Office Machines Sales Representative Name Role Phone CALLIE VIVEROS Primary Care Provider Unavailabl e Assessment No assessment recorded. Plan of Treatment Reminders Order Date Submit Date Provider Last Modified By Organization Details Last Modified Time Details Appointments Acute 20 2023 11:40A M David Viveros Not available Not available Not available Annual Wellness Exam 40 2024 10:10A M David Viveros Not available Not available Not available Lab None recorded. Referral None recorded. Procedures None recorded. Surgeries None recorded. Imaging XR, knee, 3 view - Pt. 64-F, with right knee pain, has hx of TKR on L side so I'm suspectin g some arthritis in the right side. 2023 024 [facility] [address], [place], [address], 09/23/2024 13:45:25 Medication Orders None recorded. Patient TargetsNo targets recorded. Patient Instructions Encounter Date Encounter Id Patient Instructions Last Modified By Organization Details Last Modified Time 09/23/2024 [id number] - I would advise taking a little more advil, 600 mg three times daily with food. You could trial 800mg each dose as well. If no improvement by next week you could talk to Dr. Sibley about Celebrex, if not then , then feel free to call back to our - I would recommend, famotidine, over the counter for stomach acid/reflux as needed. 10 mg up to twice daily. ( you could take 20 mg if you had to). [email or web address] Not available 09/23/2024 11:59:41 Reason for Referral None Reported. Problems Name Problem SNOMED Code Status Onset Date Resolution Date Notes Provider Name and Address Organization Details Recorded Time Pain of right knee joint 5374683978974 00 Active 2023 GISSELL MORAN [address], [place], [address] , [facility] 4 11:45:32 Hiatal hernia with gastroesoph ageal reflux 645428264 Active 2023 GISSELL MORAN [address], [place], [address] , [facility] 4 11:56:47 Generalized anxiety disorder 87635613 Active 2023 MINJEREMIE REED, [facility] 11:51:57 Mild intermitten t asthma 884821586 Active 2023 JEREMIE GOMEZ, [facility] 11:52:11 Abscess 171218794 Active 2023 JEREMIE GOMEZ, [facility] 11:52:28 Fibromyalgi a 641773909 Active 2023 JEREMIE GOMEZ, [facility] 07:42:16 Herpes simplex 58886052 Active 2023 JEREMIE GOMEZ, [facility] 07:43:21 Hypercholes terolemia 98616287 Active 2023 JEREMIE GOMEZ, [facility] 07:43:42 Spinal stenosis of lumbar region 26032690 Active 2023 JEREMIE GOMEZ, [facility] 07:44:07 Peripheral nerve disease 831443625 Active 2023 JEREMIE GOMEZ, [facility] 07:44:41 Postoperati ve hypothyroid ism 10172776 Active 2023 MIN GARCIA MA null, [facility] 07:45:39 History of malignant neoplasm of thyroid 112882370 Active 2023 MIN GARCIA MA null, [facility] 07:45:56 Hypothyroid ism 25966310 Active 2023 GISSELL MORAN [address], [place], [address], [facility] 4 10:36:40 Wasp sting-induc ed anaphylaxis 513026919 Active [address], [place], [address], [facility] 11:08:53 Hidradeniti s suppurativa 06453695 Active [address], [place], [address], [facility] 12:44:40 Allergic rhinitis 46442010 Active [address], [place], [address], [facility] 4 08:01:36 Hyperlipide amisha 07418712 Active [address], [place], [address], [facility] 4 08:33:34 Herpes labialis 6878768 Active [address], [place], [address], [facility] 4 08:38:12 Pain of left knee joint 7776566488864 07 Active [address], [place], [address], [facility] 4 11:59:00 Pain of toe of left foot 5316144568035 08 Active [address], [place], [address], [facility] 12:02:26 wound disruption 911202927 Active [address], [place], [address], [facility] 16:04:50 Abdominal pain 05874058 Active [address], [place], [address], [facility] 08:05:05 Insomnia 841370632 Active [address], [place], [address], [facility] 12:06:00 Problem Notes None recorded. Procedures Surgical History Date Name Laterality Status Provider Name and Address Organization Details Recorded Time 06/13/20 24 Suture/Staple removal completed GISSE[address] MOR[address], [place], [address], [facility] 06/13/2024 14:11:35 04/08/20 19 colonoscopy completed [facility] GARCIA [facility] 12/05/2023 07:47:38 10/09/19 18 extraction of cataract completed MIN GARCIA [facility] 12/05/2023 07:46:37 10/09/19 17 Carpal tunnel surgery completed MIN GARCIA [facility] 12/05/2023 07:46:22 10/09/19 17 anterior transposition of ulnar nerve completed MIN GARCIA [facility] 12/05/2023 07:48:48 10/09/19 13 Total knee arthroplasty completed MIN GARCIA [facility] 12/05/2023 07:48:18 10/09/19 10 colonoscopy completed MIN GARCIA [facility] 12/05/2023 07:47:28 10/09/19 06 Thyroid Surgery completed MIN GARCIA [facility] 12/05/2023 07:48:02 10/09/19 04 Thyroid Surgery completed MIN GARCIA [facility] 12/05/2023 07:47:57 10/09/18 90 Thyroid Surgery completed MIN GARCIA [facility] 12/05/2023 07:47:52 10/09/18 88 section completed MIN GARCIA [facility] 12/05/2023 07:47:05 10/09/18 85 section completed MIN GARCIA [facility] 12/05/2023 07:47:00 Imaging Results None recorded. Procedure Notes None recorded. Medical Equipment None Reported. Allergies Allergen ID Allergen Name Allergen Category Reaction Reaction Severity Criticality Documentation Date Start Date Code Code System Note Provider Name and Address Organization Details Recorded Time 15656 Substance with sulfonami de structure and antibacte rial mechanism of action (substanc e) medicatio n Not available Not available Not available 12/08/2023 03268 8003 [facility]ED [facility] 09:44:14 72837 Dilaudid medicatio n Not available Not available Not available 12/08/2023 96889 3 RxNorm [facility] 4 09:44:20 01680 morphine medicatio n Not available Not available Not available 12/08/2023 7052 RxNorm JEREMIE GOMEZ, [facility] 4 09:44:33 80014 acetamino phen / oxycodone medicatio n Not available Not available Not available 12/08/2023 33562 3 JEREMIE Malcolm, [facility] 4 09:44:41 58916 oxycodone medicatio n Not available Not available Not available 12/08/2023 7804 RxPatlillian MIN LIZCHELSEAJEREMIE, [facility] 4 09:44:49 18788 atorvasta tin medicatio n Not available Not available Not available 12/08/2023 98843 Kofilillian MIN GARCIAJEREMIE, [facility] 4 09:44:56 38929 guaifenes in medicatio n Not available Not available Not available 12/08/2023 5032 Blanka GARCIAJEREMIE, [facility] 4 09:45:07 28102 shellfish derived food,medi cation Not available Not available Not available 12/08/2023 MIN GARCIA JEREMIE nicole, [facility] 4 09:45:21 07647 fish derived food,medi cation Not available Not available Not available 12/08/2023 MIN GARCIAJEREMIE, [facility] 4 09:45:29 61176 banana extract food,medi cation Not available Not available Not available 12/08/2023 69844 9 KofiJEREMIE Jaramillo, [facility] 4 09:45:36 54026 nut - unspecifi ed food Not available Not available Not available 12/08/2023 MIN GARCIA JEREMIE nicole, [facility] 4 09:45:48 23464 coconut extract food,medi cation Not available Not available Not available 12/08/2023 36956 48 Kofilillian MIN GARCIA JEREMIE nicole, [facility] 4 09:45:57 77183 annalisa extract food Not available Not available Not available 12/08/2023 94203 32 MookiePatJEREMIE Jaramillo, [facility] 4 09:46:04 51851 kiwi fruit extract food Not available Not available Not available 12/08/2023 99108 01 Kofilillian MIN LIZJEREMIE TRAN, [facility] 4 09:46:12 04233 pear preparati on food Not available Not available Not available 12/08/2023 34068 25 MookiePatJEREMIE Jaramillo, [facility] 4 09:46:19 93728 peach food Not available Not available Not available 12/08/2023 MIN HILLCHELSEAJEREMIE, [facility] 4 09:46:27 66036 cultivate d mushroom extract food Not available Not available Not available 12/08/2023 16951 17 JEREMIE Malcolm, [facility] 4 09:46:34 Medications Name Sig Start Date Stop Date Status Note LastModified by Organization Details LastModified Time tizanidine 4 mg tablet TAKE ONE TABLET BY MOUTH EVERY DAY AT BEDTIME active Not Available Not Available No t [...] propionate 50 mcg/actuati on nasal spray,suspe nsion [place] 1 spray every day by intranasa l [...] Details Last Updated DateTime 4 154.94 cm 31.5 kg/m2 02185.2 1 g 98.4 [degF] 95 % 95 % 87 /min 122 mm[Hg] 72 mm[Hg] MIN GARCIA [facility] 4 11:32:43 Social History Question Answer Notes LastModified by Organizat ion Details LastModified Time Tobacco Smoking Status Never Smoker MIN GARCIA MA null, [facility] 12/05/2023 10:56:38 Would You Say That, [...] Of Your Most Recent Tobacco Screening? 06/19/2024 Information not available 06/19/2024 Has Tobacco Cessation Counseling Been Provided? Yes [email or web address] Information not available 06/19/2024 On What Date Was Tobacco Cessation Counseling Provided? 06/19/2024 [email or web address] Information not available 06/19/2024 Do You Or Have You Ever Used Any Other Forms Of Tobacco Or Nicotine? No Information not available 12/05/2023 Sex: Unknown Functional Status None recorded. Mental Status None recorded. Family History Nothing Reported. Medical History No medical history recorded. Gynecological HistoryNo gynecological history recorded. Obstetrics History GPAL:G 0 P 0 0 0 0 Immunizations Vaccine Type Date Status Note Provider Nam e and Address Organization Details Recorded Time Influenza, split virus, trivalent, PF 07/12/2024 completed GISSELL MORAN [address], [place], [address], [facility] 07/12/2024 12:38:59 Past Encounters Encounter ID Performer Location Encounter Start Date Encounter Closed Date Diagnosis/Indication Diagnosis SNOMED-CT Code Diagnosis ICD10 Code [id number] [facility] [address] [place] [address] 09/23/2024 11:08:04 09/23/2024 12:28:30 Pain of right knee joint 8922601004 44104 M25.561 Hiatal her michelle with gastroesophageal reflux 656662480 K21.9 Health Concerns Section Related Observation LastModified by Organization Detai ls LastModified Time None Recorded Concern Status LastModified by Organization Details LastModified Time None Recorded Payers Encounter Date Sequence Insurance Name Policy Number Policy Chanel Covered Member ID Chanel Member ID Guarantor Name 09/23/2024 1 [facility] (MEDICARE REPLACEMENT HMO) [id number] Madina Castrejon [id number] Madina Castrejon Notes Date Note Type Note Provider Name and Address Organization Details Recorded Time 09/23/2024 text/html Pt. 64-F, w/hx. of left knee replacement, in 2012, reports right knee pain increase in pain which she suspects that is OA, but she does report some soft tissue pain on her medial knee. Recent increase in pain after some shoveling medial side of leg. Reports normally painful anyway, Going up or down stairs is both painful across front of knee and patella. Standing on one foot would be painful priro to recent aggravation. GISSELL MORAN [address], [place], [address], [facility]. 09/23/2024 12:14:10 OBGyn Episode No OBEpisode recorded.
--- OUTSIDE RECORDS SUMMARY | 2024-09-23 15:28 | XMS_ITS | Continuity of Care Document ---
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 Plan of Treatment Reminders Order Date Submit Date Provider Last Modified By Organization Details Last Modified Time Details Appointments Acute 20 2023 11:40A M David Viveros Not available Not available Not available Annual Wellness Exam 40 2024 10:10A M David Viveros Not available Not available Not available Lab TSH + free T4, serum - 1 SST 2023 024 [facility] (Registration ), [address] [place] [address] [place], [address], 07/22/2024 11:32:13 Referral None recorded. Procedures None recorded. Surgeries None recorded. Imaging None recorded. Medication Orders tizanidin e 4 mg tablet 2023 024 [email or web address] [facility], [address] [place], [address], 07/15/2024 12:04:18 Patient TargetsNo targets recorded. Patient Instructions Encounter Date Encounter Id Patient Instructions Last Modified By Organization Details Last Modified Time 07/12/2024 [id number] If you develop any abdominal pain, do return to the office for f/u. [email or web address] Not available 07/16/2024 08:51:52 Reason for Referral None Reported. Results Created Date Observation Date Name Description Value Unit Range Abnormal Flag Note LastModifiedBy Organization Detail LastModifiedTime 06/19/20 24 06/19/2024 CT imagi ng repor t Patien t Name: Miller Castrejon Unit #: [id number] Loc: ER Orderi ng Provid er: Adryan Veloz M.D. Accterence t #: [id number] Status : REG ER Primar y Care [...] REPOSI TORY: All CT scans at this facili ty are submit adelina to the [facility] al Radiol ogy Data Regist ry (NRDR) Dose Index Regist ry (DIR) with the [employer] (ACR). RADIAT ION OPTIMI ZATION : All CT scans at this facili ty use at least one of these dose optimi zation techni ques: automa adelina exposu re contro l; mA and/or kV adjust ment per patien t size (inclu karina target ed exams where dose is matche d to clinic al indica tion); or iterat sylvain recons tructi on 027: Total DLP = 0.00 mGy-cm Ordere [...] report in error, please notify us immedi maudeabdirahman at and return the origin al report to us at the addres s above. Thank- you. [email or web address] [facility] [address], [place], [address] 06/19/2024 18:42:56 07/25/20 24 07/25/2024 x-ray imagi ng repor t Adis t Name: Miller Castrejon Unit #: [id number] Loc: VIOLET Rayi ng Provid er: Richard Jacobsen M.D. Accoun t #: [id number] Status : PRE CLI Primar y Care Provid er: JackelineSha livingston elias Date of Exam: 07/09 05/01 Sex: F Admiss ion Date: : 1959 Age: 63 Exam(s ) XR KNEE LT 4V AP,LAT ,MAK,P AT EXAM: XR KNEE LT 4V AP,LAT ,MAK,P AT CLINIC AL HISTOR Y: left knee pain. TECHNI QUE: 2D digita l imagin g was perfor med. Four images were obtain ed. AP, latera l and obliqu e views were obtain ed. COMPAR TEAGAN: No exams were availa ble for compar teagan FINDIN GS: BONES: The patien t has a left total knee replac ement. No fractu re or disloc ation. JOINTS : The orthop edic hardwa re is in good positi on. No eviden ce of hardwa re loosen ing. There is a small joint effusi on. SOFT TISSUE : Normal . IMPRES STEFF: Left total knee replac ement. DATA REPOSI TORY: RADIAT ION DOSE DELIVE RED: Ordere d By: Richard Jacobsen M.D. CC: ------ ------ ------ ------ ------ ------ ------ ------ ------ ------ ------ ------ - Dictat ed By: Adryan Soriano M.D. 1011 1011 Transc ribed By: Adryan Soriano 1011 This is privil eged, confid ential inform ation intend ed only for the provid er named. Any use or distri bution by any person other than this provid er is strict ly prohib ited. If you receiv e this report in error, please notify us immedi ately at and return the origin al report to us at the addres s above. Thank- you. INTERFACE [facility] [address], [place], [address] 07/25/2024 10:25:10 Result Notes None recorded. Problems Name Problem SNOMED Code Status Onset Date Resolution Date Notes Provider Name and Address Organization Details Recorded Time Pain of right knee joint 9522191664560 00 Active 2023 GISSELL MORAN [address], [place], [address] , [facility] 4 11:45:32 Hiatal hernia with gastroesoph ageal reflux 840070207 Active 2023 GISSELL MORAN [address], [place], [address] , [facility] 4 11:56:47 Generalized anxiety disorder 38431900 Active 2023 MIN GARCIA MA [facility], [facility] 4 11:51:57 Mild intermitten t asthma 184471032 Active 2023 JEREMIE GOMEZ, [facility] 4 11:52:11 Abscess 620219998 Active 2023 JEREMIE GOMEZ, [facility] 4 11:52:28 Fibromyalgi a 309258645 Active 2023 JEREMIE GOMEZ, [facility] 4 07:42:16 Herpes simplex 49126956 Active 2023 JEREMIE GOMEZ, [facility] 4 07:43:21 Hypercholes terolemia 58032163 Active 2023 JEREMIE GOMEZ, [facility] 4 07:43:42 Spinal stenosis of lumbar region 30442920 Active 2023 JEREMIE GOMEZ, [facility] 4 07:44:07 Peripheral nerve disease 395546742 Active 2023 JEREMIE GOMEZ, [facility] 4 07:44:41 Postoperati ve hypothyroid ism 64774154 Active 2023 MINJEREMIE REED, [facility] 4 07:45:39 History of malignant neoplasm of thyroid 462715463 Active 2023 JEREMIE GOMEZ, [facility] 4 07:45:56 Hypothyroid ism 63102955 Active [address], [place], [address] [place] [address] 4 10:36:40 Wasp sting-induc ed anaphylaxis 932063022 Active [address], [place], [address], [facility], [facility]. 4 11:08:53 Hidradeniti s suppurativa 26687572 Active [address], [place], [address], [facility] 4 12:44:40 Allergic rhinitis 42601311 Active [address], [place], [address], [facility] 4 08:01:36 Hyperlipide amisha 27877549 Active [address], [place], [address], [facility] 08:33:34 Herpes labialis 5911859 Active [address], [place], [address], [facility] 4 08:38:12 Pain of left knee joint 0907252038682 07 Active [address], [place], [address], [facility] 4 11:59:00 Pain of toe of left foot 6025797438893 08 Active [address], [place], [address], [facility] 4 12:02:26 wound disruption 294020041 Active 2023 CIRO CISNEROS PA-C [address], [place], [address], [facility] 4 16:04:50 Abdominal pain 24908829 Active 2023 GISSELL MORAN [address], [place], [address], [facility], [facility] 08:05:05 Insomnia 131854608 Active 2023 GISSELL MORAN [address], [place], [address], [facility] 12:06:00 Problem Notes None recorded. Procedures Surgical History Date Name Laterality Status Provider Name and Address Organization Details Recorded Time 06/13/20 24 Suture/Staple removal completed GISSELL MORAN [address], [place], [address], [facility], [facility] 06/13/2024 14:11:35 04/08/20 19 colonoscopy completed MIN GARCIA MA [facility], [facility] 12/05/2023 07:47:38 10/09/19 18 extraction of cataract completed MIN GARCIA MA [facility], [facility] 12/05/2023 07:46:37 10/09/19 17 Carpal tunnel surgery completed MIN GARCIA MA [facility], [facility] 12/05/2023 07:46:22 10/09/19 17 anterior transposition of ulnar nerve completed MIN GARCIA MA [facility], [facility] 12/05/2023 07:48:48 10/09/19 13 Total knee arthroplasty completed MIN GARCIA MA [facility], [facility]. 12/05/2023 07:48:18 10/09/19 10 colonoscopy completed MIN GARCIA MA [facility], [facility] 12/05/2023 07:47:28 10/09/19 06 Thyroid Surgery completed MIN GARCIA MA [facility], [facility]. 12/05/2023 07:48:02 10/09/19 04 Thyroid Surgery completed MIN GARCIA MA [facility], [facility] 12/05/2023 07:47:57 10/09/18 90 Thyroid Surgery completed MIN GARCIA [place] [facility] 12/05/2023 07:47:52 10/09/18 88 section completed MIN GARCIA MA [facility] 12/05/2023 07:47:05 10/09/18 85 section completed MIN GARCIA MA [facility] 12/05/2023 07:47:00 Imaging Results None recorded. Procedure Notes None recorded. Medical Equipment None Reported. Allergies Allergen ID Allergen Name Allergen Category Reaction Reaction Severity Criticality Documentation Date Start Date Code Code System Note Provider Name and Address Organization Details Recorded Time 40017 Substance with sulfonami de structure and antibacte rial mechanism of action (substanc e) medicatio n Not available Not available Not available 12/08/2023 91334 8003 SNOMED [facility] 4 09:44[facility]14 87052 Dilaudid medicatio n Not available Not available Not available 12/08/2023 66053 3 RxNorm MIN H[facility]CHELSEA [facility] 4 09:44:20 31085 morphine medicatio n Not available Not available Not available 12/08/2023 7052 [facility] 4 09:44:33 81093 acetamino phen / oxycodone medicatio n Not available Not available Not available 12/08/2023 35719 3 RxNorm MIN GARCIA JEREMIE nicole, [facility] 4 09:44:41 08993 oxycodone medicatio n Not available Not available Not available 12/08/2023 7804 RxNorm MIN GARCIA JEREMIE nicole, [facility] 4 09:44:49 39012 atorvasta tin medicatio n Not available Not available Not available 12/08/2023 51240 RxNorm MIN GARCIA MA bonnie, [facility] 4 09:44:56 63361 guaifenes in medicatio n Not available Not available Not available 12/08/2023 5032 RxNoJEREMIE Jaramillo, [facility] 4 09:45:07 95831 shellfish derived food,medi cation Not available Not available Not available 12/08/2023 JEREMIE GOMEZ, [facility] 4 09:45:21 52476 fish derived food,medi cation Not available Not available Not available 12/08/2023 MINREUBEN GARCIAJEREMIE, [facility] 4 09:45:29 10028 banana extract food,medi cation Not available Not available Not available 12/08/2023 82600 9 Kofilillain PALOMINOVIE LIZCHELSEAJEREMIE, [facility] 4 09:45:36 88492 nut - unspecifi ed food Not available Not available Not available 12/08/2023 MIN GARCIAJEREMIE, [facility] 4 09:45:48 02491 coconut extract food,medi cation Not available Not available Not available 12/08/2023 12065 48 JEREMIE Malcolm, [facility] 4 09:45:57 39272 annalisa extract food Not available Not available Not available 12/08/2023 05638 32 Kofilillian PALOMINOREUBEN GARCIAJEREMIE, [facility] 4 09:46:04 26408 kiwi fruit extract food Not available Not available Not available 12/08/2023 86019 01 Blanka MIN HILLCHELSEAJEREMIE, [facility] 4 09:46:12 96190 pear preparati on food Not available Not available Not available 12/08/2023 51837 25 Blanka GARCIA JEREMIE nicole, [facility] 4 09:46:19 65951 peach food Not available Not available Not available 12/08/2023 MIN GARCIA MA bonnie, [facility] 4 09:46:27 28269 cultivate d mushroom extract food Not available Not available Not available 12/08/2023 79544 17 RxNorm MIN GARCIA MA null, [place] - [facility]. 09:46:34 Medications Name Sig Start Date Stop [...] propionate 50 mcg/actuati on nasal spray,suspe nsion [place] 1 spray every day by intranasa l [...] Details Last Updated DateTime 4 154.94 cm 31.4 kg/m2 49827.0 5 g 96.8 [degF] 95 % 95 % 93 /min 132 mm[Hg] 86 mm[Hg] MIN GARCIA MA [facility] 4 11:36:26 Social History Question Answer Notes LastModified by Organizat ion Details LastModified Time Tobacco Smoking Status Never Smoker MIN GARCIA MA null, [facility] 12/05/2023 10:56:38 Would You Say [...] Of Your Most Recent Tobacco Screening? 06/19/2024 [email or web address] Information not available 06/19/2024 Has Tobacco Cessation Counseling Been Provided? Yes [email or web address] Information not available 06/19/2024 On What Date Was Tobacco Cessation Counseling Provided? 06/19/2024 [email or web address] Information not available 06/19/2024 Do You Or [...] virus, trivalent, PF 07/12/[address], [place], [address], [facility] 07/12/2024 12:38:59 Past Encounters Encounter ID Performer Location Encounter Start Date Encounter Closed Date Diagnosis/Indication Diagnosis SNOMED-CT Code Diagnosis ICD10 Code [id number] MINREUBEN GARCIA MA [facility] [address] [place] [address] 06/13/2024 13:32:10 06/13/2024 14:00:51 Removal of suture 58253805 Z48.02 [id number] CIRO CISNEROS PA-C [address] [place] [address] 06/19/2024 13:35:12 06/19/2024 15:59:04 wound disruption 764944329 O90.0 [id number] GISSELL MORAN [facility] [address] [place] [address] 07/12/2024 11:06:58 07/12/2024 12:48:14 Abdominal pain 18068291 R10.9 Hypothyroidism 09516141 E03.9 History of malignant neoplasm of thyroid 446303000 Z85.850 Active or passive immunization 266891685 Z23 Insomnia 299121175 G47.0 0 Fibromyalgia 470579236 M 79.7 Health Concerns Section Related Observation LastModified by Organization Detai ls LastModified Time None Recorded Concern Status LastModified by Organization Details LastModified Time None Recorded Payers Encounter Date Sequence Insurance Name Policy Number Policy Chanel Covered Member ID Chanel Member ID Guarantor Name 07/12/2024 1 [facility] (MEDICARE REPLACEMENT HMO) [id number] Madina Castrejon [id number] Madina Castrejon Notes Date Note Type Note Provider Name and Address Organization Details Recorded Time 07/12/2024 text/html Pt, 63-F, here f or f/u of [facility], she was seen at ED 06/19/2024 and imaged for concern about abscess on her caesarian scar after she experienced some expression of clear, but slighlty filmy liquid. She had incidental possible small air bubbles noted on liver. She denies any abdominal pain today. Pt. reports today she is feeling fine, no concerns. She expresses no desire for repeat imaging. Thyroid: Due for check. Does not yet have [facility] appointment. Pt. agreeable to check Tsh/T4 for hypothyroid, she will do specialty cancer surveillance lab when she has her appt. with [facility]. GISSELL MORAN [address], [place], [address], [facility] - [facility]. 07/16/2024 08:51:57 OBGyn Episode No OBEpisode recorded.
== END 2024-09-23 15:46 ==
PROVIDERS: PCP Student in an Organized Health Care Education/Training Program; Visit Provider Student in an Organized Health Care Education/Training Program
DX: M25.561 Pain in right knee (principal)
CPT/HCPCS: 73562

== ENCOUNTER 2024-10-11 11:37 | Outpatient (CLI) | payer MEDICARE, SELFPAY ==
--- NOTE | 2024-10-11 08:30 | DI.RAD_ITS ---
Exam(s) XR HIP RT COMPLETE AP PELVIS EXAM: XR HIP RT COMPLETE AP PELVIS CLINICAL HISTORY: right leg pain. TECHNIQUE: 2D digital imaging was performed. COMPARISON: No exams were available for comparison FINDINGS: Two views No evidence of pelvic nor hip fracture. No hip joint space narrowing. Bone density normal. No osse ous lesions. Additional lateral view of the right hip reveals no osteophytes nor joint space narrowi ng. Sacroiliac joints appear unremarkable as does the sepsis pubis. IMPRESSION: No significant osseous findings in the pelvis and hips. DATA REPOSITORY: RADIATION DOSE DELIVERED:
--- NOTE | 2024-10-11 08:45 | DI.RAD_ITS ---
Exam(s) XR KNEE RT 1V EXAM: XR KNEE RT 1V CLINICAL HISTORY: right knee pain. TECHNIQUE: 2D digital imaging was performed. COMPARISON: CR XR KNEE RT 3V AP,LAT,MAK from 09/23/2024 FINDINGS: Single sunrise/merchant's view of the right knee. There is no evidence of patellar fracture or displacement and there is no narrowing of the retropatel lar space. Bone density is normal. No osseous lesions and no obvious osteochondral defects evident. IMPRESSION: No significant radiograph findings on this single merchant's view of the right knee. DATA REPOSITORY: RADIATION DOSE DELIVERED:
== END 2024-10-11 11:38 | disposition home or self-care (01) ==
LOC: DIORS 11:38
PROVIDERS: PCP Student in an Organized Health Care Education/Training Program; Referring Provider Student in an Organized Health Care Education/Training Program; Visit Provider Physician Assistant
DX: M23.91 Unspecified internal derangement of right knee; M16.11 Unilateral primary osteoarthritis, right hip
CPT/HCPCS: 20610; 99213; J1010; 73502; 73560

== ENCOUNTER 2024-11-05 16:46 | Outpatient (REF) | payer MEDICARE, SELFPAY ==
--- NOTE | 2024-11-05 09:30 | PAPFT_PTH ---
PATIENT: Madina Castrejon LOC: [facility] U#:[id number] AGE/SX: 64/F ROOM: RE11/05/[address]: Xavier Viveros : 1960 BED: DIS: 11/05/2024 SPEC #: [id number] RECD: 11/05/24 17:45 STATUS: JAM REQ #: [id number] TAYLOR: 11/05/24 09:[address]: Xavier Viveros DEPT: [facility] Cytology RECD BY: Niya Brink Tissues: 1 - CX/ENDOCX FOR PAP SMEARS Procedures: PAP THIN PREP/UVM Screening HPV DNA PROBE Comments: [id number] (HPV 16 & 18/45)
== END 2024-11-05 16:47 | disposition home or self-care (01) ==
LOC: NCHCN 16:46
PROVIDERS: PCP Student in an Organized Health Care Education/Training Program; Visit Provider Student in an Organized Health Care Education/Training Program
DX: Z12.4 Encounter for screening for malignant neoplasm of cervix (principal)
CPT/HCPCS: 88142; 87624

== ENCOUNTER → 2024-12-13 08:47 | Outpatient (BNVA) | payer MEDICARE, SELFPAY | PROVIDERS: PCP Student in an Organized Health Care Education/Training Program; Referring Provider Student in an Organized Health Care Education/Training Program | DX: M23.91 Unspecified internal derangement of right knee (principal) | CPT/HCPCS: 99212 ==

== ENCOUNTER 2025-01-27 02:01 | Outpatient (CLI) | payer MEDICARE, SELFPAY ==
--- NOTE | 2025-01-27 13:33 | DI.RAD_ITS ---
Exam(s) XR FOOT LT COMPLETE EXAM: XR FOOT LT COMPLETE CLINICAL HISTORY: Toe pain, left,m79.675. TECHNIQUE: 2D digital imaging was performed of the left foot. Three images were obtained. AP, obli que and lateral views were obtained. COMPARISON: No exams were available for comparison FINDINGS: BONES: No acute fracture is present. No bony destructive lesion is seen. There is a small enthesophyt e at the posterior calcaneus. JOINTS: No dislocation present. Moderate degenerative changes are seen at the 1st MTP joint character ized by joint space narrowing and osteophytes. SOFT TISSUE: Normal. IMPRESSION: Moderate degenerative changes seen at the 1st MTP joint. DATA REPOSITORY: RADIATION DOSE DELIVERED:
--- NOTE | 2025-01-27 13:33 | DI.RAD_ITS ---
Exam(s) XR FOOT RT COMPLETE EXAM: XR FOOT RT COMPLETE CLINICAL HISTORY: pain rt foot, M79.671. TECHNIQUE: 2D digital imaging was performed of the right foot. Three images were obtained. AP, obl ique and lateral views were obtained. COMPARISON: No exams were available for comparison FINDINGS: BONES: No acute fracture is present. No bony destructive lesion is seen. There is a small plantar lily caneal spur. There is a small enthesophyte at the posterior calcaneus. JOINTS: No dislocation present. There are moderate degenerative changes seen at the 1st MTP joint kathy racterized by joint space narrowing and osteophytes. SOFT TISSUE: Normal. IMPRESSION: Moderate degenerative changes seen at the 1st MTP joint. DATA REPOSITORY: RADIATION DOSE DELIVERED:
== END 2025-01-27 02:21 ==
LOC: DI 02:01
PROVIDERS: PCP Student in an Organized Health Care Education/Training Program; Visit Provider Podiatrist
DX: M19.071 Primary osteoarthritis, right ankle and foot (principal); M19.072 Primary osteoarthritis, left ankle and foot; B07.0 Plantar wart; L84 Corns and callosities; M79.671 Pain in right foot
CPT/HCPCS: 17110; 73630

== ENCOUNTER 2025-02-25 16:30 | Outpatient (REF) | payer MEDICARE, SELFPAY ==
[2025-02-25 19:53] LABS: TSH (W/Ref FT4) 0.11 uIU/mL (0.36-3.74)
[2025-02-26 11:26] LABS: FREE T4 1.33 ng/dL (0.76-1.46)
== END 2025-02-25 16:31 | disposition home or self-care (01) ==
LOC: NCHCN 16:30
PROVIDERS: PCP Student in an Organized Health Care Education/Training Program; Visit Provider Student in an Organized Health Care Education/Training Program
DX: E03.9 Hypothyroidism, unspecified (principal)
CPT/HCPCS: 84439; 84443

== ENCOUNTER → 2025-03-12 07:53 | Outpatient (BNVA) | payer MEDICARE, SELFPAY | PROVIDERS: PCP Student in an Organized Health Care Education/Training Program; Referring Provider Student in an Organized Health Care Education/Training Program; Visit Provider Podiatrist | DX: B07.0 Plantar wart (principal); L84 Corns and callosities; M79.671 Pain in right foot | CPT/HCPCS: 17110 ==

== ENCOUNTER → 2025-03-31 10:11 | Outpatient (BNVA) | payer MEDICARE, SELFPAY | PROVIDERS: PCP Student in an Organized Health Care Education/Training Program; Referring Provider Student in an Organized Health Care Education/Training Program; Visit Provider Podiatrist | DX: B07.0 Plantar wart (principal); L84 Corns and callosities; M79.671 Pain in right foot | CPT/HCPCS: 17110 ==

== ENCOUNTER 2025-04-09 02:57 | Outpatient (CLI) | payer MEDICARE, SELFPAY ==
--- NOTE | 2025-04-09 | DI.MAMMO_ITS ---
Exam(s) MAMMO SCREENING EXAM: MAMMO SCREENING CLINICAL HISTORY: SCREENING, Z12.31,annual TECHNIQUE: Mammograms were interpreted according to the usual protocol including computer analysis with CAD system, tomosynthesis and C-view imaging. COMPARISON: 2023 FINDINGS: The breasts are composed of scattered fibroglandular densities, Breast Density category B. No suspicious masses or suspicious microcalcifications are seen. No skin thickening or abnormal axillary lymph nodes are seen. There has been no significant change from prior exams. IMPRESSION: BI-RADS Category 1, Negative mammogram Yearly screening mammography is recommended. Breast Density - Category B - There are scattered areas of fibroglandular density. Breast density Category C or D implies that the patient has dense breast tissue. Dense breast tissue can make it harder to find cancer on a mammogram. Dense breast tissue is also associated with an increased risk of breast cancer. This information about the result of the mammogram report was provided to the patient to raise their awareness. Use this report when you speak with the patient about their risks for breast cancer, which includes their family history. At that time, you may recommend additional screening tests (Ultrasound or MRI) as these tests may add significant information. A negative radiographic report should not delay biopsy if a dominant or clinically suspicious mass is present. Up to ten percent of cancers are not identified on mammography. A negative report may reinforce clinical impression. Adenosis and dense breasts may obscure an underlying neoplasm. False positive reports average 6 to 10%. Patient will receive a letter notifying them of these results.
== END 2025-04-09 03:17 ==
PROVIDERS: PCP Student in an Organized Health Care Education/Training Program; Visit Provider Student in an Organized Health Care Education/Training Program
DX: Z12.31 Encounter for screening mammogram for malignant neoplasm of breast (principal); R92.323 Mammographic fibroglandular density, bilateral breasts
CPT/HCPCS: 77063; 77067

== ENCOUNTER 2025-06-25 10:59 | Outpatient (CLI) | payer MEDICARE, SELFPAY ==
--- NOTE | 2025-06-25 10:30 | DI.RAD_ITS ---
Exam(s) XR KNEE RT 4V AP,LAT,MAK,PAT EXAM: XR KNEE RT 4V AP,LAT,MAK,PAT CLINICAL HISTORY: right knee pain. TECHNIQUE: 2D digital imaging was performed of the right knee. Four views obtained. Merchant, AP, lateral and PA tunnel views were obtained. COMPARISON: CR XR KNEE LEFT 1-2 VIEWS from 10/23/2023 CR XR KNEE RT 3V AP,LAT,MAK from 09/23/2024 CR XR KNEE RT 1V from 10/11/2024 FINDINGS: BONES: No acute fracture is present. No bony destructive lesion is seen. JOINTS: The knee is normally aligned. There is mild spurring of the posterior patella. There is no joint effusion. SOFT TISSUE: There is a tiny 1-2 mm linear density adjacent to the medial tibial plateau of uncertain if any clinical significance. IMPRESSION: Mild degenerative changes of the right knee. DATA REPOSITORY: RADIATION DOSE DELIVERED:
== END 2025-06-25 11:00 | disposition home or self-care (01) ==
LOC: DIORS 10:59
PROVIDERS: PCP Student in an Organized Health Care Education/Training Program; Referring Provider Student in an Organized Health Care Education/Training Program; Visit Provider Physician Assistant
DX: M23.91 Unspecified internal derangement of right knee (principal)
CPT/HCPCS: 73564

== ENCOUNTER → 2025-07-25 10:32 | Outpatient (BNVA) | payer MEDICARE, SELFPAY | PROVIDERS: PCP Student in an Organized Health Care Education/Training Program; Referring Provider Student in an Organized Health Care Education/Training Program; Visit Provider Physician Assistant | DX: M23.91 Unspecified internal derangement of right knee (principal) | CPT/HCPCS: 20610; J1010 ==

== ENCOUNTER 2025-09-17 12:39 | Outpatient (REF) | payer MEDICARE, SELFPAY ==
[2025-09-17 17:32] LABS: Cholesterol 203 mg/dL (<200); HDL Cholesterol 48 mg/dL (>40)
== END 2025-09-17 12:40 | disposition home or self-care (01) ==
LOC: NCHCN 12:39
PROVIDERS: PCP Student in an Organized Health Care Education/Training Program; Visit Provider Student in an Organized Health Care Education/Training Program
DX: E78.5 Hyperlipidemia, unspecified (principal)
CPT/HCPCS: 80061